=== PATIENT | female | born 1955 | race Caucasian/White ===

== ENCOUNTER 2021-07-01 19:46 | Emergency (ER) | payer MEDICARE, MEDICAID ==
[~2021-07-01] VITALS: Ht 167.7 cm; Wt 86.0 kg
[~2021-07-01 19:46] MED LIST: ACHD5005 PO; ASPI-586 PO; GABAPENTIN; INSU100V6 SQ; LISI-729 PO; OMEG500C PO; OMEP20TA7 PO; VALA10007 PO
--- NOTE | 2021-07-01 20:07 | ED Dyspnea ---
General Stated Complaint: SOB/WEAKNESS History of Present Illness Date Seen by Provider: Jul 01, 2021 Time Seen by Provider: 20:07 Initial Comments 66-year-old female with past medical history significant for COPD and a long- term smoker presents with intermittent shortness of air which began today, primarily with walking. Has had similar symptoms before. No recent illness, fever or chills. No cough or chest pain. No shortness of air at rest. Allergies and Home Medications Allergies Coded Allergies: midazolam (Verified Allergy, Unknown, 07/30/16) Home Medications Hydrocodone Bit/Acetaminophen 1 Each Tablet, 1 EACH PO Q4H PRN for PAIN Prescribed by: CARMELO PRASAD on 07/30/16 1300 Lisinopril 5 Mg Tablet, 5 MG PO DAILY, (Reported) Valacyclovir HCl 1,000 Mg Tablet, 1,000 MG PO TID Prescribed by: CARMELO PRASAD on 07/30/16 1300 Patient Home Medication List Home Medication List Reviewed: Yes Review of Systems Review of Systems Constitutional: No fever, No malaise, No weakness EENTM: no symptoms reported Respiratory: see HPI, dyspnea on exertion; No stridor, No wheezing Cardiovascular: No chest pain, No edema, No palpitations, No syncope Gastrointestinal: No abdominal pain, No nausea, No vomiting Musculoskeletal: No back pain, No joint pain, No muscle pain, No muscle stiffness, No neck pain Skin: change in color (redness of left leg- noticed on arrival to ER); No lesions, No rash Past Khfylbp-Jmkeml-Dogobb Hx Patient Social History Tobacco Use?: Yes Past Medical History Section, Gallbladder, Hysterectomy, Lumpectomy Hypertension Neuropathy Chronic Diarrhea Diabetes, Non-Insulin dep Physical Exam Vital Signs Vital Signs - First Documented 07/01/21 20:06 Temp 38.2 Pulse 135 Resp 20 B/P (MAP) 116/49 (71) Pulse Ox 97 O2 Delivery Room Air Capillary Refill : Height, Weight, BMI Height: 5'7" Weight: 239lbs. oz. 108.354774ue; BMI Method:Stated General Appearance: No Apparent Distress, WD/WN HEENT: PERRL/EOMI, Normal ENT Inspection Neck: Non Tender, Supple Respiratory: Chest Non Tender, Lungs Clear, Normal Breath Sounds, No Accessory Muscle Use, No Respiratory Distress Cardiovascular: Regular Rate, Rhythm, No JVD Gastrointestinal: Non Tender, Soft Extremity: Normal Capillary Refill, Non Tender, No Calf Tenderness, No Pedal Edema, Other (slight edema and erythema- left lower leg- anteriorly (c/w celulitis)) Neurologic/Psychiatric: Alert, Oriented x3, No Motor/Sensory Deficits Progress/Results/Core Measures Results/Orders Lab Results Laboratory Tests Test 07/01/21 20:45 07/01/21 22:20 Range/Units White Blood Count 19.2 H 4.3-11.0 10^3/uL Red Blood Count 3.85 L 4.35-5.85 10^6/uL Hemoglobin 12.5 11.5-16.0 G/DL Hematocrit 36 35-52 % Mean Corpuscular Volume 94 80-99 FL Mean Corpuscular Hemoglobin 32 25-34 PG Mean Corpuscular Hemoglobin Concent 35 32-36 G/DL Red Cell Distribution Width 12.7 10.0-14.5 % Platelet Count 217 130-400 10^3/uL Mean Platelet Volume 10.3 7.4-10.4 FL Immature Granulocyte % (Auto) 1 % Neutrophils (%) (Auto) 89 H 42-75 % Lymphocytes (%) (Auto) 6 L 12-44 % Monocytes (%) (Auto) 4 0-12 % Eosinophils (%) (Auto) 0 0-10 % Basophils (%) (Auto) 0 0-10 % Neutrophils # (Auto) 17.0 H 1.8-7.8 X 10^3 Lymphocytes # (Auto) 1.1 1.0-4.0 X 10^3 Monocytes # (Auto) 0.9 0.0-1.0 X 10^3 Eosinophils # (Auto) 0.0 0.0-0.3 10^3/uL Basophils # (Auto) 0.1 0.0-0.1 10^3/uL Immature Granulocyte # (Auto) 0.2 H 0.0-0.1 10^3/uL Neutrophils % (Manual) 89 % Lymphocytes % (Manual) 4 % Monocytes % (Manual) 5 % Band Neutrophils 2 % D-Dimer 0.81 H 0.00-0.49 UG/ML Sodium Level 133 L 135-145 MMOL/L Potassium Level 3.7 3.6-5.0 MMOL/L Chloride Level 97 L 98-107 MMOL/L Carbon Dioxide Level 22 21-32 MMOL/L Anion Gap 14 5-14 MMOL/L Blood Urea Nitrogen 19 H 7-18 MG/DL Creatinine 0.95 0.60-1.30 MG/DL Estimat Glomerular Filtration Rate 59 BUN/Creatinine Ratio 20 Glucose Level 141 H 70-105 MG/DL Calcium Level 9.0 8.5-10.1 MG/DL Corrected Calcium 9.1 8.5-10.1 MG/DL Total Bilirubin 0.8 0.1-1.0 MG/DL Aspartate Amino Transf (AST/SGOT) 18 5-34 U/L Alanine Aminotransferase (ALT/SGPT) 10 0-55 U/L Alkaline Phosphatase 62 40-136 U/L Troponin I < 0.30 <0.30 NG/ML Pro-B-Type Natriuretic Peptide 4580.0 H <75.0 PG/ML Total Protein 7.4 6.4-8.2 GM/DL Albumin 3.9 3.2-4.5 GM/DL Urine Color YELLOW Urine Clarity CLEAR Urine pH 5.5 5-9 Urine Specific [place] 1.010 L 1.016-1.022 Urine Protein NEGATIVE NEGATIVE Urine Glucose (UA) NEGATIVE NEGATIVE Urine Ketones 1+ H NEGATIVE Urine Nitrite NEGATIVE NEGATIVE Urine Bilirubin NEGATIVE NEGATIVE Urine Urobilinogen 0.2 < = 1.0 MG/DL Urine Leukocyte Esterase NEGATIVE NEGATIVE Urine RBC (Auto) 1+ H NEGATIVE Urine RBC NONE /HPF Urine WBC 5-10 H /HPF Urine Squamous Epithelial Cells 5-10 /HPF Urine Crystals NONE /LPF Urine Bacteria MODERATE H /HPF Urine Casts NONE /LPF Urine Mucus NEGATIVE /LPF Urine Culture Indicated YES My Orders Orders - HECTOR TRUONG DO Chest 1 View Ap/Pa Only (07/01/21 20:25) Ekg Tracing (07/01/21 20:25) Ed Iv/Invasive Line Start (07/01/21 20:31) Cbc With Automated Diff (07/01/21 20:31) Comprehensive Metabolic Panel (07/01/21 20:31) Troponin I Fs (07/01/21 20:31) Probnp Fs (07/01/21 20:31) Fibrin Degradation Products (07/01/21 20:31) Ns Iv 1000 Ml (Sodium Chloride 0.9%) (07/01/21 21:00) Manual Differential (07/01/21 20:45) Cefepime Injection (Maxipime Injection) (07/01/21 21:15) Iohexol Injection (Omnipaque 350 Mg/Ml 1 (07/01/21 21:30) Received Contrast (Hold Metformin- Contr (07/01/21 21:30) Ns (Ivpb) (Sodium Chloride 0.9% Ivpb Bag (07/01/21 21:30) Ct Angio Chest W (07/01/21 21:18) Ns Iv 500 Ml (Sodium Chloride 0.9%) (07/01/21 21:45) Urinalysis (07/01/21 22:25) Urine Culture (07/01/21 22:20) Medications Given in ED Current Medications Medications Dose Ordered Sig/Sara Route Start Time Stop Time Status Last Admin Dose Admin Cefepime HCl 1000 mg/Sterile Water 10 ml @ 200 mls/hr ONCE ONCE IV 07/01/21 21:15 07/01/21 21:17 DC 07/01/21 21:23 200 MLS/HR Iohexol 125 ml ONCE ONCE IV 07/01/21 21:30 07/01/21 21:31 DC 07/01/21 21:36 125 ML Sodium Chloride 100 ml ONCE ONCE IV 07/01/21 21:30 07/01/21 21:31 DC 07/01/21 21:36 100 ML Vital Signs/I&O 07/01/21 07/01/21 07/01/21 07/01/21 20:06 20:15 20:30 20:45 Temp 38.2 Pulse 135 132 120 124 Resp 20 B/P (MAP) 116/49 (71) 112/67 (82) 116/88 (97) 110/68 (82) Pulse Ox 97 97 96 99 O2 Delivery Room Air 07/01/21 07/01/21 07/01/21 07/01/21 21:00 21:15 21:30 22:30 Pulse 114 111 117 116 B/P (MAP) 123/63 (83) 130/66 (87) 116/63 (80) 128/74 (92) Pulse Ox 95 96 96 98 07/01/21 07/01/21 23:30 23:30 Temp 37.2 Pulse 97 97 Resp 20 B/P (MAP) 130/70 130/70 (90) Pulse Ox 94 94 O2 Delivery Room Air 07/02/21 00:00 Intake Total 1010 ml Balance 1010 ml Initial ECG Impression Date: Jul 01, 2021 Initial ECG Impression Time: 20:29 Initial ECG Rate: 135 Initial ECG Rhythm: S.Tach Initial ECG Intervals: Normal Initial ECG Comparisson: No Previous ECG Available Comment non-specific ST changes V3 V4 Diagnostic Imaging Diagonstic Imaging: Xray Plain Films/CT/US/NM/MRI: chest Comments Date of Exam:07/01/21 CHEST 1 VIEW AP/PA ONLY INDICATION: Dyspnea. EXAMINATION: Frontal chest was obtained at 8:18 p.m. FINDINGS: Heart is normal in size. Mediastinal silhouette is unremarkable. There are chronic appearing increased interstitial markings. There is no acute consolidation, pneumothorax or pleural fluid. There is hyperinflation. IMPRESSION: COPD changes with chronic appearing increased interstitial markings. No acute consolidation or pleural fluid. Dictated on workstation # [id number] Dict: 07/01/212039 Trans: 07/01/212045 [facility] [id number] Interpreted by: NHAN GUZMAN MD Electronically signed by: Departure Communication (Admissions) Time/Spoke to Admitting Phy: 22:[address] Richardson who accepts for admission/ transfer to [facility] Impression Primary Impression: Dyspnea on exertion Additional Impression: Cellulitis Qualified Codes: L03.116 - Cellulitis of left lower limb Disposition: XFER SHT-TRM HOSP Condition: Stable Admissions Decision to Admit Reason: Admit from ER (General) Decision to Admit/Date: Jul 01, 2021 Time/Decision to Admit Time: 22:00 Transfer Transfer Reason: Diversion (no beds [facility]) Time Spoke to Accepting Phy: 22:37 Transfer Facility: [facility] Method of Transfer: EMS Departure-Patient Inst. Referrals: [facility] (PCP/Family) Primary Care Physician HECTOR TRUONG DO Jul 01, 2021 20:07
--- NOTE | 2021-07-01 20:47 | Diagnostic Imaging Report ---
INDICATION: Dyspnea. EXAMINATION: Frontal chest was obtained at 8:18 p.m. FINDINGS: Heart is normal in size. Mediastinal silhouette is unremarkable. There are chronic appearing increased interstitial markings. There is no acute consolidation, pneumothorax or pleural fluid. There is hyperinflation. IMPRESSION: COPD changes with chronic appearing increased interstitial markings. No acute consolidation or pleural fluid. Dictated by: Dictated on workstation # [id number]
[2021-07-01 20:53] LABS: BASOPHILS # (AUTO) 0.1 10^3/uL (0.0-0.1); BASOPHILS % (AUTO) 0 % (0-10); EOSINOPHILS % (AUTO) 0 % (0-10); HEMATOCRIT 36 % (35-52); HEMOGLOBIN 12.5 G/DL (11.5-16.0); LYMPHOCYTES # (AUTO) 1.1 X 10^3 (1.0-4.0); LYMPHOCYTES % (AUTO) 6 % (12-44); MEAN CORPUSCULAR HEMOGLOBIN 32 PG (25-34); MEAN CORPUSCULAR HGB CONC 35 G/DL (32-36); MEAN CORPUSCULAR VOLUME 94 FL (80-99); MEAN PLATELET VOLUME 10.3 FL (7.4-10.4); MONOCYTES # (AUTO) 0.9 X 10^3 (0.0-1.0); MONOCYTES % (AUTO) 4 % (0-12); NEUTROPHILS % (AUTO) 89 % (42-75); PLATELET COUNT 217 10^3/uL (130-400); WHITE BLOOD COUNT 19.2 10^3/uL (4.3-11.0)
[2021-07-01] MEDS ORDERED: NS IV 1000 ML 1,000 ML IV SCH (21:00)
[2021-07-01 21:13] LABS: ALANINE AMINOTRANSFERASE 10 U/L (0-55); ALBUMIN 3.9 GM/DL (3.2-4.5); ALKALINE PHOSPHATASE 62 U/L (40-136); BILIRUBIN,TOTAL 0.8 MG/DL (0.1-1.0); BUN/CREATININE RATIO 20; CARBON DIOXIDE 22 MMOL/L (21-32); CHLORIDE 97 MMOL/L (98-107); CREATININE SERUM 0.95 MG/DL (0.60-1.30); GFR ESTIMATED 59; GLUCOSE 141 MG/DL (70-105); POTASSIUM 3.7 MMOL/L (3.6-5.0); SODIUM 133 MMOL/L (135-145); TOTAL PROTEIN 7.4 GM/DL (6.4-8.2)
[2021-07-01] MEDS ORDERED: CEFEPIME INJECTION 1,000 MG in WATER (STERILE) FOR INJECTION 10 ML IV ONE (21:15)
[2021-07-01] MEDS ORDERED: NS 100 ML (IVPB) BAG IV ONE (21:30)
[2021-07-01] MEDS ORDERED: IOHEXOL 350 MG/ML 150 ML (OMNIPAQUE 350) VIAL IV ONE (21:30)
[2021-07-01] MEDS ORDERED: HOLD METFORMIN - RECEIVED CONTRAST 20 ML VIAL IV SCH (21:30)
[2021-07-01] MEDS ORDERED: NS IV 500 ML 500 ML IV SCH (21:45)
--- NOTE | 2021-07-01 22:22 | Diagnostic Imaging Report ---
PROCEDURE: CT angiography of the chest with contrast. TECHNIQUE: Multiple contiguous axial images were obtained through the chest after uneventful bolus administration of intravenous contrast. 3D reconstructed CTA MIP acquisitions were also performed. Auto Exposure Controls were utilized during the CT exam to meet ALARA standards for radiation dose reduction. INDICATION: Shortness of breath. COMPARISON: There is no prior CTA chest examination available for comparison. The plain film examination of the chest performed earlier today at 8:17 PM noted chronic bony changes but failed to show any sign of an acute cardiopulmonary abnormality. The heart size is within normal limits. There are sparse coronary artery calcifications evident. The aorta is not abnormally dilated and there is no sign of a dissection. There is no defect within the pulmonary arteries to indicate a pulmonary embolus either. There are mild emphysematous changes involving both lungs. There is no evidence of failure, pneumonia or a pleural effusion to indicate an acute abnormality. In the right lung base near the diaphragm there is a fairly well-circumscribed noncalcified 6.9 x 14.7 mm nodule. This finding does not have an aggressive appearance and may well be benign. The possibility that this is a malignant lesion cannot be entirely excluded. If previous studies are available they would be helpful for comparison. If there are no prior exams, then PET/CT would be recommended for further study. If the PET/CT exam is not performed, then a short-term (three-month) CT chest exam would be recommended. There is no other parenchymal lung mass identified. There is no mediastinal or hilar adenopathy. Thyroid gland was obscured by streak artifact. There is no definite breast mass. The sections through the upper abdomen failed to show any sign of an acute abnormality. There do appear to be cysts associated with both kidneys. Ultrasound would be recommended to confirm this. Also, there is a 5.2 cm defect in the anterior abdominal wall near midline and a portion of the left lobe of the liver has extended through this defect into the subcutaneous fat. The gallbladder is also surgically absent. The bone windows show no sign of a fracture or of a destructive lesion. IMPRESSION: 1. There is no evidence for an acute cardiopulmonary abnormality. In particular, there is no sign of a pulmonary embolus or of an aortic dissection. 2. The parenchymal nodule in the right lung base is of uncertain etiology although most likely benign. Recommendations as above. 3. There appear to be cysts associated with both kidneys. Ultrasound would be recommended to confirm this. 4. There is a defect in the anterior abdominal wall with a portion of the left lobe of the liver extending through the defect. Dictated by: Dictated on workstation # [id number]
[2021-07-01 22:33] LABS: BACTERIA,URINE MODERATE /HPF; BILIRUBIN,URINE NEGATIVE (NEGATIVE); CLARITY,URINE CLEAR; COLOR,URINE YELLOW; GLUCOSE, URINE (UA) NEGATIVE (NEGATIVE); KETONES,URINE 1+ (NEGATIVE); LEUKOCYTE ESTERASE ,URINE NEGATIVE (NEGATIVE); NITRITE,URINE NEGATIVE (NEGATIVE); PH,URINE 5.5 (5-9); PROTEIN,URINE NEGATIVE (NEGATIVE)
[2021-07-01 22:49] LABS: BAND NEUTROPHILS 2 %; LYMPHOCYTES % (MANUAL) 4 %; MONOCYTES % (MANUAL) 5 %; NEUTROPHILS % (MANUAL) 89 %
[2021-07-01 23:30] VITALS: BP 130/70
== END 2021-07-01 23:30 | disposition short-term general hospital (02) ==
LOC: EDUNIT# 19:46 → ER FS 19:50
DX: R06.09 Other forms of dyspnea (principal); L03.116 Cellulitis of left lower limb; I10 Essential (primary) hypertension; E11.9 Type 2 diabetes mellitus without complications; Z79.899 Other long term (current) drug therapy
CPT/HCPCS: 36415; 71045; 71275; 80053; 81000; 83880; 84484; 85007; 85027; 85379; 87088; 93005; 96374

== ENCOUNTER 2021-08-13 18:20 | Emergency (ER) | payer MEDICARE, MEDICAID ==
[~2021-08-13] VITALS: Ht 170.2 cm; Wt 112.5 kg
[2021-08-13 18:33] VITALS: BP 117/81
[2021-08-13] MEDS ORDERED: IBUPROFEN 800 MG (MOTRIN) TAB PO STA (18:46)
--- NOTE | 2021-08-13 18:52 | ED Fever ---
History of Present Illness General Chief Complaint: Fever-Adult/Adol Stated Complaint: FEVER/COUGH Nursing Triage Note: Patient reports she began running a fever of 99 degrees and having chills this morning. She denies any new shortness of breath, cough, N/V/D, headache, body aches, sore throat, etc. She states she took tylenol 4 hours ago. Source: patient History of Present Illness Date Seen by Provider: Aug 13, 2021 Time Seen by Provider: 18:21 Initial Comments 66-year-old female presenting with complaints of fever 99 F and having chills since this morning. She had taken Tylenol few hours ago and it was helping but then she started having chills again. She denies any new shortness of breath, cough, increased sputum production, nausea, vomiting, diarrhea, headache, nasal congestion, body aches, sore throat, pain with urination, blood in her urine, blood in her stool. She denies having any chest pains. She has not been having any sinus congestion or pressure for a sinus infection. She states that she does not feel any different than normal other than she has the low-grade fever and chills. She wanted to know what to do to treat the fever and chills. She denies any ill contacts. She refused swab for Covid or influenza Timing/Duration: this morning Fever Quality: low grade Fever Therapy COACH WIRER: Tylenol Associated Symptoms: No abdominal pain, No chest pain, No confusion; cough (Chronic and no worse than usual); No diaphoresis, No headache, No muscle aches, No nausea/vomiting, No rash; shortness of breath (Chronic and no worse than usual); No sore throat, No stiff neck, No syncope, No weakness Allergies and Home Medications Allergies Coded Allergies: midazolam (Verified Allergy, Unknown, 07/30/16) Patient Home Medication List Home Medication List Reviewed: Yes Aspirin (Aspir 81) 81 Mg Tablet.dr, 81 MG PO, (Reported) Entered as Reported by: JIMMY LUCIANO on 07/30/16 1104 Hydrocodone Bit/Acetaminophen (Lortab 5 Mg Tablet) 1 Each Tablet, 1 EACH PO Q4H PRN for PAIN Prescribed by: CARMELO PRASAD on 07/30/16 1300 Insulin Glargine,Hum.rec.anlog (Lantus) 100 Unit/1 Ml Vial, 35 UNIT SQ, (Reported) Entered as Reported by: JIMMY LUCIANO on 07/30/161103 Lisinopril (Lisinopril) 5 Mg Tablet, 5 MG PO DAILY, (Reported) Entered as Reported by: JIMMY LUCIANO on 07/30/161103 [place]-3 Fatty Acids (Fish Oil) 500 Mg Capsule.dr, 500 MG PO, (Reported) Entered as Reported by: JIMMY LUCIANO on 07/30/16 110 Omeprazole (Omeprazole) 20 Mg Tablet.dr, 20 MG PO, (Reported) Entered as Reported by: JIMMY LUCIANO on 07/30/16 110 Valacyclovir HCl (Valacyclovir) 1,000 Mg Tablet, 1,000 MG PO TID Prescribed by: CARMELO PRASAD on 07/30/16 1300 [Gabapentin] , (Reported) Entered as Reported by: JIMMY LUCIANO on 07/30/16 110 Review of Systems Review of Systems Constitutional: chills, fever EENTM: No ear discharge, No ear pain, No blurred vision, No eye pain, No dental problems, No mouth pain, No epistaxis, No nose congestion, No throat pain, No throat swelling Respiratory: see HPI Cardiovascular: No chest pain, No palpitations Gastrointestinal: No abdominal pain, No diarrhea, No nausea, No vomiting Genitourinary: No decreased output, No dysuria, No frequency Musculoskeletal: No joint pain, No muscle pain, No muscle cramps Skin: No rash Psychiatric/Neurological: Denies Headache Past Jllspdv-Mojvhy-Yoqgfs Hx Patient Social History Tobacco Use?: Yes Tobacco type used: Cigarettes Smoking Status: Current Everyday Smoker Substance use?: No Alcohol Use?: No Pt feels they are or have been: No Past Medical History Surgery/Hospitalization HX: COPD, DM, HTN Section, Gallbladder, Hysterectomy, Lumpectomy Hypertension Neuropathy Chronic Diarrhea Diabetes, Non-Insulin dep Physical Exam Vital Signs - First Documented 08/13/21 18:33 Temp 37.6 Pulse 96 Resp 26 B/P (MAP) 117/81 (93) Pulse Ox 99 O2 Delivery Room Air Capillary Refill : Less Than 3 Seconds Height: 5'7" Weight: 239lbs. oz. 108.963773qg; 38.00 BMI Method:Stated General Appearance: no apparent distress, obese HEENT: pharynx normal Neck: non-tender, full range of motion, supple, normal inspection Respiratory: chest non-tender, no respiratory distress, no accessory muscle use, decreased breath sounds Cardiovascular: normal peripheral pulses, regular rate, rhythm Gastrointestinal: normal bowel sounds, non tender, soft, no pulsatile mass Extremities: normal range of motion, non-tender Neurologic/Psychiatric: alert, oriented x 3 Skin: normal color, warm/dry Progress/Results/Core Measures Suspected Sepsis SIRS Temperature: Pulse: 96 Respiratory Rate: 26 Blood Pressure 117 /81 Mean: 93 Results/Orders My Orders Orders - CARMELLA WONG MD Ibuprofen Tablet (Motrin Tablet) (08/13/21 18:46) Vital Signs/I&O 08/13/21 18:33 Temp 37.6 Pulse 96 Resp 26 B/P (MAP) 117/81 (93) Pulse Ox 99 O2 Delivery Room Air Capillary Refill : Less Than 3 Seconds Blood Pressure Mean: 93 Progress Note : Progress Note Advised patient that without doing a chest x-ray, labs, nasal swab or additional testing that he could not give her a reason for her fever. On exam did not find any focal sign of infection. Her symptoms or just the fever and chills and do not help pinpoint a specific location for her symptoms. Patient refused any blood work or x-rays or nasal swabs. She stated repeatedly she just wanted to know how to deal with the fever. Advised that this may be related to her COPD if there is a little low-grade infection from her chronic bronchitis so taking Mucinex to help loosen any congestion cough might help. If she wanted I could prescribe a Zithromax Z-Paul to try and help with her symptoms in case it was COPD related. Patient declined that for now as well. Counseled to take ibuprofen in addition to acetaminophen to help with her fever and chills. Patient states she has no ibuprofen at home so we will give a dose of ibuprofen here. Advised that she had worsening symptoms or things change to be seen again or check back through the clinic. Otherwise for now continue with symptomatic care and treatment Departure Impression Primary Impression: Fever in adult Additional Impression: Chills with fever Disposition: HOME, SELF-CARE Condition: Stable Departure-Patient Inst. Decision time for Depature: 18:49 Referrals: [facility] [place] Primary Care Physician Patient Instructions: Fever, Adult ED, When to Worry About a Fever in Adults Add. Discharge Instructions: Try taking Ibuprofen 800 mg every 8 hours if needed for fever and chills. You may alternate this with Acetaminophen 650 mg every 6 hours for fever and chills. In case the fever is from your COPD and the Chronic Bronchitis trying to set up into infection you could take Mucinex to help loosen cough and congestion. Check back with clinic if not improving or having worsening symptoms If you have more problems or are not improving then you may need additional testing such as the Chest Xray, blood work and Swabs to check for viral infections that you declined today. All discharge instructions reviewed with patient and/or family. Voiced understanding. CARMELLA WONG MD Aug 13, 2021 18:52
== END 2021-08-13 18:57 | disposition home or self-care (01) ==
LOC: EDUNIT# 18:20 → ER FS 18:22
DX: R50.9 Fever, unspecified (principal); I10 Essential (primary) hypertension; E11.40 Type 2 diabetes mellitus with diabetic neuropathy, unspecified; J44.9 Chronic obstructive pulmonary disease, unspecified; E66.9 Obesity, unspecified; F17.210 Nicotine dependence, cigarettes, uncomplicated; Z68.38 Body mass index [BMI] 38.0-38.9, adult; Z79.4 Long term (current) use of insulin; Z79.899 Other long term (current) drug therapy
CPT/HCPCS: 99283

== ENCOUNTER 2021-08-14 23:00 | Emergency (ER) | payer MEDICARE, MEDICAID ==
[~2021-08-14] VITALS: Ht 170 cm; Wt 108.4 kg
--- NOTE | 2021-08-14 23:13 | ED General ---
General Stated Complaint: FEVER Source of Information: Patient, EMS History of Present Illness Date Seen by Provider: Aug 14, 2021 Time Seen by Provider: 23:07 Initial Comments 66-year-old female presents with body aches and chills, low-grade fever which began yesterday. Seen in this ER last night and patient refused most of the work-up and treatments offered. Tonight she comes back via EMS with complaint of swelling and redness of her left leg. States he had similar symptoms in the past and diagnosed with cellulitis of her left leg in the past. Allergies and Home Medications Allergies Coded Allergies: midazolam (Verified Allergy, Unknown, 07/30/16) Patient Home Medication List Home Medication List Reviewed: Yes Aspirin (Aspir 81) 81 Mg Tablet., 81 MG PO, (Reported) Entered as Reported by: JIMMY LUCIANO on 07/30/16 110 Hydrocodone Bit/Acetaminophen (Lortab 5 Mg Tablet) 1 Each Tablet, 1 EACH PO Q4H PRN for PAIN Prescribed by: CARMELO PRASAD on 07/30/16 1300 Insulin Glargine,Hum.rec.anlog (Lantus) 100 Unit/1 Ml Vial, 35 UNIT SQ, (Reported) Entered as Reported by: JIMMY LUCIANO on 07/30/16 110 Lisinopril (Lisinopril) 5 Mg Tablet, 5 MG PO DAILY, (Reported) Entered as Reported by: JIMMY LUCIANO on 07/30/16 110 [place]-3 Fatty Acids (Fish Oil) 500 Mg Capsule., 500 MG PO, (Reported) Entered as Reported by: JIMMY LUCIANO on 07/30/16 110 Omeprazole (Omeprazole) 20 Mg Tablet., 20 MG PO, (Reported) Entered as Reported by: JIMMY LUCIANO on 07/30/16 110 Valacyclovir HCl (Valacyclovir) 1,000 Mg Tablet, 1,000 MG PO TID Prescribed by: CARMELO PRASAD on 07/30/16 1300 [Gabapentin] , (Reported) Entered as Reported by: JIMMY LUCIANO on 07/30/16 110 Review of Systems Review of Systems Constitutional: see HPI, chills, fever, malaise EENTM: no symptoms reported Respiratory: No cough, No short of breath Cardiovascular: No edema, No palpitations Gastrointestinal: No abdominal pain, No loss of appetite, No vomiting Musculoskeletal: see HPI; No back pain, No joint pain Skin: see HPI, change in color (redness Left leg); No pruritus, No rash Psychiatric/Neurological: Denies Numbness, Denies Paresthesia Past Yswfiyo-Vpqhwh-Bpctyx Hx Patient Social History Tobacco Use?: Yes Past Medical History Surgery/Hospitalization HX: COPD, DM, HTN Section, Gallbladder, Hysterectomy, Lumpectomy Hypertension Neuropathy Chronic Diarrhea Diabetes, Non-Insulin dep Physical Exam Vital Signs Capillary Refill : Height, Weight, BMI Height: 5'7" Weight: 239lbs. oz. 108.991584wy; 38.00 BMI Method:Stated General Appearance: No Apparent Distress, WD/WN Respiratory: Chest Non Tender, Lungs Clear, Normal Breath Sounds Cardiovascular: Regular Rate, Rhythm, No Gallop, No JVD Gastrointestinal: Non Tender, Soft Back: Normal Inspection, No CVA Tenderness Extremity: Normal Capillary Refill, Normal Range of Motion, Non Tender Neurologic/Psychiatric: Alert, Oriented x3 Skin: Erythema (Left leg and Left foot); No Rash Focused Exam Lactate Level 08/14/21 23:24: Lactic Acid Level 1.77 Lactic Acid Level Laboratory Tests Test 08/14/21 23:24 Lactic Acid Level 1.77 MMOL/L (0.50-2.00) Progress/Results/Core Measures Suspected Sepsis Recent Fever Within 48 Hours: Yes Infection Criteria Present: Suspected New Infection New/Unexplained Altered Menta: No Within 3hrs of presentation: Admin fluids, Admin ABX, Blood cultures prior to ABX's, Focus exam, Lactate level Sepsis Diagnosis: (1) Cellulitis Qualifiers: Qualified Codes: L03.116 - Cellulitis of left lower limb (2) Fever in adult SIRS Temperature: Pulse: Respiratory Rate: Laboratory Tests 08/14/21 23:10: White Blood Count 14.5H Blood Pressure / Mean: 08/14/21 23:24: Lactic Acid Level 1.77 Laboratory Tests 08/14/21 23:10: Creatinine 1.17, Platelet Count 204, Total Bilirubin 0.5 Results/Orders Lab Results Laboratory Tests Test 08/14/21 23:10 08/14/21 23:24 Range/Units White Blood Count 14.5 H 4.3-11.0 10^3/uL Red Blood Count 3.86 3.80-5.11 10^6/uL Hemoglobin 12.6 11.5-16.0 g/dL Hematocrit 38 35-52 % Mean Corpuscular Volume 97 80-99 fL Mean Corpuscular Hemoglobin 33 25-34 pg Mean Corpuscular Hemoglobin Concent 34 32-36 g/dL Red Cell Distribution Width 13.2 10.0-14.5 % Platelet Count 204 130-400 10^3/uL Mean Platelet Volume 10.9 9.0-12.2 fL Immature Granulocyte % (Auto) 1 % Neutrophils (%) (Auto) 81 H 42-75 % Lymphocytes (%) (Auto) 13 12-44 % Monocytes (%) (Auto) 6 0-12 % Eosinophils (%) (Auto) 0 0-10 % Basophils (%) (Auto) 0 0-10 % Neutrophils # (Auto) 11.7 H 1.8-7.8 X 10^3 Lymphocytes # (Auto) 1.9 1.0-4.0 X 10^3 Monocytes # (Auto) 0.8 0.0-1.0 X 10^3 Eosinophils # (Auto) 0.0 0.0-0.3 10^3/uL Basophils # (Auto) 0.1 0.0-0.1 10^3/uL Immature Granulocyte # (Auto) 0.1 0.0-0.1 10^3/uL Neutrophils % (Manual) 74 % Lymphocytes % (Manual) 11 % Monocytes % (Manual) 1 % Metamyelocytes % 1 % Band Neutrophils 8 % Atypical Lymphocytes 5 % Platelet Estimate ADEQUATE Blood Morphology Comment NORMAL Sodium Level 134 L 135-145 MMOL/L Potassium Level 4.2 3.6-5.0 MMOL/L Chloride Level 97 L 98-107 MMOL/L Carbon Dioxide Level 25 21-32 MMOL/L Anion Gap 12 5-14 MMOL/L Blood Urea Nitrogen 24 H 7-18 MG/DL Creatinine 1.17 0.60-1.30 MG/DL Estimat Glomerular Filtration Rate 46 BUN/Creatinine Ratio 21 Glucose Level 230 H 70-105 MG/DL Calcium Level 8.8 8.5-10.1 MG/DL Corrected Calcium 9.0 8.5-10.1 MG/DL Total Bilirubin 0.5 0.1-1.0 MG/DL Aspartate Amino Transf (AST/SGOT) 17 5-34 U/L Alanine Aminotransferase (ALT/SGPT) 10 0-55 U/L Alkaline Phosphatase 73 40-136 U/L Total Protein 7.6 6.4-8.2 GM/DL Albumin 3.7 3.2-4.5 GM/DL Lactic Acid Level 1.77 0.50-2.00 MMOL/L My Orders Orders - ROVENSTINE,HECTOR L DO Ed Iv/Invasive Line Start (08/14/21 23:07) Cbc With Automated Diff (08/14/21 23:07) Comprehensive Metabolic Panel (08/14/21 23:07) Lactic Acid Analyzer (08/14/21 23:07) Blood Culture (08/14/21 23:07) Ceftriaxone (Rocephin) (08/14/21 23:15) Ceftriaxone (Rocephin) (08/14/21 23:16) Water (Sterile) For Injection (Sterile W (08/14/21 23:18) Manual Differential (08/14/21 23:10) Medications Given in ED Current Medications Medications Dose Ordered Sig/Sara Route Start Time Stop Time Status Last Admin Dose Admin Ceftriaxone Sodium 1000 mg/ Sterile Water 10 ml @ 200 mls/hr ONCE ONCE IV 08/14/21 23:15 08/14/21 23:17 DC 08/14/21 23:21 200 MLS/HR Vital Signs/I&O 08/15/21 00:00 Intake Total 10 ml Balance 10 ml Capillary Refill : Departure Impression Primary Impression: Cellulitis Qualified Codes: L03.116 - Cellulitis of left lower limb Disposition: HOME, SELF-CARE Condition: Stable Departure-Patient Inst. Decision time for Depature: 00:12 Referrals: [facility] (PCP/Family) Primary Care Physician Patient Instructions: Cellulitis (Skin Infection), Adult ED Add. Discharge Instructions: Follow up with your PCP in 2 days for re-examination. Continue the antibiotics as instructed. Elevate your leg (legs) 4 times daily for 20-30 minutes to prevent swelling Scripts Ibuprofen (Ibuprofen) 800 Mg Tablet 800 MG PO Q8H PRN for PAIN, #30 TAB 0 Refills Prov: ROVENSTINE,HECTOR L DO 08/15/21 Cephalexin (Cephalexin) 500 Mg Tablet 500 MG PO QID, #28 TAB 0 Refills Prov: ROVENSTINE,HECTOR L DO 08/15/21 HECTOR TRUONG DO Aug 14, 2021 23:13
[2021-08-14] MEDS ORDERED: cefTRIAXone 1,000 MG in WATER (STERILE) FOR INJECTION 10 ML IV ONE (23:15)
[2021-08-14] MEDS ORDERED: cefTRIAXone 1,000 MG VIAL ONE (23:16)
[2021-08-14] MEDS ORDERED: WATER (STERILE) FOR INJECTION 10 ML ONE (23:18)
[2021-08-14 23:41] LABS: BASOPHILS % (AUTO) 0 % (0-10); EOSINOPHILS % (AUTO) 0 % (0-10); HEMATOCRIT 38 % (35-52); HEMOGLOBIN 12.6 g/dL (11.5-16.0); LYMPHOCYTES # (AUTO) 1.9 X 10^3 (1.0-4.0); LYMPHOCYTES % (AUTO) 13 % (12-44); MEAN CORPUSCULAR HEMOGLOBIN 33 pg (25-34); MEAN CORPUSCULAR HGB CONC 34 g/dL (32-36); MEAN CORPUSCULAR VOLUME 97 fL (80-99); MEAN PLATELET VOLUME 10.9 fL (9.0-12.2); MONOCYTES % (AUTO) 6 % (0-12); NEUTROPHILS # (AUTO) 11.7 X 10^3 (1.8-7.8); NEUTROPHILS % (AUTO) 81 % (42-75); PLATELET COUNT 204 10^3/uL (130-400); WHITE BLOOD COUNT 14.5 10^3/uL (4.3-11.0)
[2021-08-14 23:42] LABS: BASOPHILS # (AUTO) 0.1 10^3/uL (0.0-0.1); MONOCYTES # (AUTO) 0.8 X 10^3 (0.0-1.0)
[2021-08-14 23:50] LABS: ATYPICAL LYMPHOCYTES 5 %; BAND NEUTROPHILS 8 %; LYMPHOCYTES % (MANUAL) 11 %; METAMYELOCYTES % 1 %; MONOCYTES % (MANUAL) 1 %; NEUTROPHILS % (MANUAL) 74 %
[2021-08-14 23:51] LABS: PLATELET ESTIMATE ADEQUATE; RBC MORPH NORMAL
[2021-08-14 23:56] LABS: POTASSIUM 4.2 MMOL/L (3.6-5.0)
[2021-08-14 23:57] LABS: ALBUMIN 3.7 GM/DL (3.2-4.5); BILIRUBIN,TOTAL 0.5 MG/DL (0.1-1.0); CALCIUM 8.8 MG/DL (8.5-10.1); CREATININE SERUM 1.17 MG/DL (0.60-1.30); TOTAL PROTEIN 7.6 GM/DL (6.4-8.2)
[2021-08-15] MEDS ORDERED: IBUP-1780 PO (00:16)
[2021-08-15] MEDS ORDERED: CEPH500T PO (00:16)
[2021-08-15 01:03] VITALS: BP 146/100
== END 2021-08-15 00:30 | disposition home or self-care (01) ==
LOC: EDUNIT# 23:00 → ER FS 23:01
DX: L03.116 Cellulitis of left lower limb (principal); J44.9 Chronic obstructive pulmonary disease, unspecified; I10 Essential (primary) hypertension; E11.9 Type 2 diabetes mellitus without complications; Z79.82 Long term (current) use of aspirin; Z79.899 Other long term (current) drug therapy
CPT/HCPCS: 36415; 80053; 83605; 85007; 85027; 87040

== ENCOUNTER → 2021-10-30 | Outpatient (CLI) | payer MEDICARE, MEDICAID ==
[~2021-10-30] MED LIST changes: +CEPH500T PO; +IBUP-1780 PO; -LISI-729 PO; +LISI5TAB20 PO
== END ==
LOC: WOUNDCARE 12:23
PROVIDERS: ATTEND Family Medicine
DX: E11.621 Type 2 diabetes mellitus with foot ulcer (principal); L97.522 Non-pressure chronic ulcer of other part of left foot with fat layer exposed; E11.65 Type 2 diabetes mellitus with hyperglycemia; E11.40 Type 2 diabetes mellitus with diabetic neuropathy, unspecified; L03.116 Cellulitis of left lower limb; T65.222A Toxic effect of tobacco cigarettes, intentional self-harm, initial encounter; I70.245 Atherosclerosis of native arteries of left leg with ulceration of other part of foot; E11.52 Type 2 diabetes mellitus with diabetic peripheral angiopathy with gangrene
CPT/HCPCS: 99212

== ENCOUNTER → 2021-11-06 | Outpatient (CLI) | payer MEDICARE, MEDICAID | LOC: WOUNDCARE 12:24 | PROVIDERS: ATTEND Family Medicine | DX: E11.621 Type 2 diabetes mellitus with foot ulcer (principal); L97.522 Non-pressure chronic ulcer of other part of left foot with fat layer exposed; E11.65 Type 2 diabetes mellitus with hyperglycemia; E11.40 Type 2 diabetes mellitus with diabetic neuropathy, unspecified; E11.52 Type 2 diabetes mellitus with diabetic peripheral angiopathy with gangrene; L03.116 Cellulitis of left lower limb; T65.222A Toxic effect of tobacco cigarettes, intentional self-harm, initial encounter; I70.245 Atherosclerosis of native arteries of left leg with ulceration of other part of foot | CPT/HCPCS: 99212 ==

== ENCOUNTER → 2021-11-09 | Outpatient (CLI) | payer MEDICARE, MEDICAID | LOC: CARD 11:00 | PROVIDERS: ATTEND Internal Medicine Cardiovascular Disease | DX: I34.0 Nonrheumatic mitral (valve) insufficiency (principal); I11.9 Hypertensive heart disease without heart failure; I25.10 Atherosclerotic heart disease of native coronary artery without angina pectoris | CPT/HCPCS: 93306 ==

== ENCOUNTER → 2021-11-13 | Outpatient (CLI) | payer MEDICARE, MEDICAID | LOC: WOUNDCARE 12:19 | PROVIDERS: ATTEND Family Medicine | DX: E11.621 Type 2 diabetes mellitus with foot ulcer (principal); L97.522 Non-pressure chronic ulcer of other part of left foot with fat layer exposed; E11.65 Type 2 diabetes mellitus with hyperglycemia; E11.40 Type 2 diabetes mellitus with diabetic neuropathy, unspecified; L03.116 Cellulitis of left lower limb; T65.222A Toxic effect of tobacco cigarettes, intentional self-harm, initial encounter; I70.245 Atherosclerosis of native arteries of left leg with ulceration of other part of foot; E11.52 Type 2 diabetes mellitus with diabetic peripheral angiopathy with gangrene | CPT/HCPCS: 99212 ==

== ENCOUNTER → 2021-11-20 | Outpatient (CLI) | payer MEDICARE, MEDICAID | LOC: WOUNDCARE 12:21 | PROVIDERS: ATTEND Family Medicine | DX: E11.621 Type 2 diabetes mellitus with foot ulcer (principal); L97.522 Non-pressure chronic ulcer of other part of left foot with fat layer exposed; E11.52 Type 2 diabetes mellitus with diabetic peripheral angiopathy with gangrene; E11.65 Type 2 diabetes mellitus with hyperglycemia; E11.40 Type 2 diabetes mellitus with diabetic neuropathy, unspecified; L03.116 Cellulitis of left lower limb; T65.222A Toxic effect of tobacco cigarettes, intentional self-harm, initial encounter; I70.245 Atherosclerosis of native arteries of left leg with ulceration of other part of foot | CPT/HCPCS: 99212 ==

== ENCOUNTER → 2021-11-27 | Outpatient (CLI) | payer MEDICARE, MEDICAID | LOC: WOUNDCARE 12:20 | PROVIDERS: ATTEND Family Medicine | DX: E11.621 Type 2 diabetes mellitus with foot ulcer (principal); L97.522 Non-pressure chronic ulcer of other part of left foot with fat layer exposed; E11.65 Type 2 diabetes mellitus with hyperglycemia; E11.40 Type 2 diabetes mellitus with diabetic neuropathy, unspecified; T65.222A Toxic effect of tobacco cigarettes, intentional self-harm, initial encounter; I70.245 Atherosclerosis of native arteries of left leg with ulceration of other part of foot; E11.52 Type 2 diabetes mellitus with diabetic peripheral angiopathy with gangrene | CPT/HCPCS: 99212 ==

== ENCOUNTER → 2021-11-27 | Outpatient (CLI) | payer MEDICARE, MEDICAID ==
[2021-11-27 13:31] LABS: BASOPHILS # (AUTO) 0.1 10^3/uL (0.0-0.1); BASOPHILS % (AUTO) 1 % (0-10); EOSINOPHILS # (AUTO) 0.1 10^3/uL (0.0-0.3); EOSINOPHILS % (AUTO) 1 % (0-10); HEMATOCRIT 39 % (35-52); HEMOGLOBIN 12.8 g/dL (11.5-16.0); LYMPHOCYTES # (AUTO) 2.9 10^3/uL (1.0-4.0); LYMPHOCYTES % (AUTO) 28 % (12-44); MEAN CORPUSCULAR HEMOGLOBIN 33 pg (25-34); MEAN CORPUSCULAR HGB CONC 33 g/dL (32-36); MEAN CORPUSCULAR VOLUME 99 fL (80-99); MEAN PLATELET VOLUME 10.2 fL (9.0-12.2); MONOCYTES # (AUTO) 0.6 10^3/uL (0.0-1.0); MONOCYTES % (AUTO) 5 % (0-12); NEUTROPHILS # (AUTO) 6.8 10^3/uL (1.8-7.8); NEUTROPHILS % (AUTO) 65 % (42-75); PLATELET COUNT 229 10^3/uL (130-400); WHITE BLOOD COUNT 10.3 10^3/uL (4.3-11.0)
[2021-11-27 14:08] LABS: ALBUMIN 4.2 GM/DL (3.2-4.5); BILIRUBIN,TOTAL 0.7 MG/DL (0.1-1.0); CALCIUM 9.6 MG/DL (8.5-10.1); CREATININE SERUM 0.84 MG/DL (0.60-1.30); POTASSIUM 4.2 MMOL/L (3.6-5.0); TOTAL PROTEIN 6.9 GM/DL (6.4-8.2)
== END ==
LOC: LAB 12:58
PROVIDERS: ATTEND Family Medicine
DX: E11.621 Type 2 diabetes mellitus with foot ulcer (principal); L97.522 Non-pressure chronic ulcer of other part of left foot with fat layer exposed; E11.65 Type 2 diabetes mellitus with hyperglycemia; E11.40 Type 2 diabetes mellitus with diabetic neuropathy, unspecified; L03.116 Cellulitis of left lower limb; T65.222A Toxic effect of tobacco cigarettes, intentional self-harm, initial encounter; I70.245 Atherosclerosis of native arteries of left leg with ulceration of other part of foot
CPT/HCPCS: 36415; 80053; 83036; 85025

== ENCOUNTER 2021-12-01 09:00 | Day surgery (SDC) | payer MEDICARE, MEDICAID ==
[~2021-12-01] VITALS: Ht 165.1 cm; Wt 116.0 kg
[2021-12-01] VITALS (11 sets, daily range): BP systolic 118–186; BP diastolic 62–99
--- NOTE | 2021-12-01 07:30 | Diagnostic Imaging Report ---
INDICATION: Abnormal ankle-brachial index, vascular disease, diabetes. COMPARISON: 07/01/2021 TECHNIQUE: Single frontal radiograph of the chest dated 09/20 2022 FINDINGS: The cardiac silhouette is within normal limits in size. No significant pulmonary vascular congestion. Mild background emphysematous changes and chronic interstitial lung changes are again identified. This appears similar to the prior examination without new focal pulmonary consolidation. No pleural effusion. No pneumothorax. No acute osseous abnormality. IMPRESSION: Background chronic interstitial lung changes and emphysema without superimposed acute cardiopulmonary abnormality. Dictated by: Dictated on workstation # [id number]
[2021-12-01 08:01] LABS: HEMATOCRIT 40 % (35-52); HEMOGLOBIN 13.2 g/dL (11.5-16.0); MEAN CORPUSCULAR HEMOGLOBIN 32 pg (25-34); MEAN CORPUSCULAR HGB CONC 33 g/dL (32-36); MEAN CORPUSCULAR VOLUME 98 fL (80-99); MEAN PLATELET VOLUME 10.8 fL (9.0-12.2); PLATELET COUNT 241 10^3/uL (130-400); WHITE BLOOD COUNT 10.7 10^3/uL (4.3-11.0)
[2021-12-01 08:15] LABS: ALBUMIN 3.9 GM/DL (3.2-4.5); BILIRUBIN,TOTAL 0.7 MG/DL (0.1-1.0); CALCIUM 9.4 MG/DL (8.5-10.1); CREATININE SERUM 0.9 MG/DL (0.60-1.30); POTASSIUM 3.9 MMOL/L (3.6-5.0); TOTAL PROTEIN 7.5 GM/DL (6.4-8.2)
[2021-12-01 08:23] LABS: INR 0.9 (0.8-1.4)
[~2021-12-01 09:00] MED LIST changes: +HEParin (CATH LAB) 2,000 ML IV ONE; +LEVO5TAB12 PO; +LIDOCAINE 1% INJ 20 ML VIAL ONE; +LISI1TAB44 PO; +LOVA40TA2 PO; +NS IV 1000 ML 1,000 ML IV SCH; +NS IV 1000 ML 1,000 ML ONE; +OMEP40CA6 PO; +fentaNYL INJ 100 MCG/2 ML AMP ONE
[2021-12-01] MEDS ORDERED: HEParin 1000 UNIT/ML (10ML VIAL) FOR BOLUS ONE (09:23)
[2021-12-01] MEDS ORDERED: ASPIRIN 325 MG (5 GR) TABLET ONE (09:49)
[2021-12-01] MEDS ORDERED: CLOPIDOGREL 300 MG (PLAVIX) TABLET PO ONE (09:49)
--- NOTE | 2021-12-01 09:52 | Conscious Sedation/ASA ---
Conscious Sedation Pre-Proced Time 09:52 ASA Score 3 For ASA 3 and 4: Consider anesthesia and medical clearance. Also, for patients with a history of failed moderate sedation consider anesthesia. Airway Lungs Heart ASA score ASA 1: a normal healthy patient ASA 2: a patient with a mild systemic disease (mid diabetes, controlled hypertension, obesity x ASA 3: a patient with a severe systemic disease that limits activity (angina, COPD, prior Myocardial infarction) ASA 4: a patient with an incapacitating disease that is a constant threat to life (CHF, renal failure) ASA 5: a moribund patient not expected to survive 24 hrs. (ruptured aneurysm) ASA 6: a declared brain- patient whose organs are being harvested. For emergent operations, add the letter E after the classification Mallampati Classification Grade 3 Sedation Plan Analgesia, Amnesia, Plan communicated to team members, Discussed options with patient/fam, Discussed risks with patient/fam The patient is an appropriate candidate to undergo the planned procedure, sedation, and anesthesia. The patient immediately re-assessed prior to indication. DOMINIC WOODS MD Dec 01, 2021 09:52
[2021-12-01] MEDS ORDERED: CLOP75TA69 PO (09:54)
--- NOTE | 2021-12-01 09:54 | Discharge Inst-Post CATH ---
Discharge Inst-CATH/EP Problems Reviewed?: Yes Post Cardiac Cath/EP D/C Inst Follow Up/Plan Appointment with Dr. Rachel's office in 2 to 4 weeks <b>CARDIAC CATH/EP PROCEDURE DISCHARGE INSTRUCTIONS</b> ACTIVITY * Go Home directly and rest. * Limit activity of the leg (or wrist if it was used) for 7 days including aer obics, swimming, jogging, bicycling, etc. * Restrict stair-climbing for 7 days if possible, if not, climb up with your non-cath leg, then bring together on the same step. * Avoid lifting, pushing, pulling or excessive movement of the affected extremi ty for 7 days. * Customary sexual activity may be resumed after 2 days-use caution not to use a position that strains or causes pain to the affected extremity. * No driving for 24 hours. * NO SMOKING. * Avoid straining for bowel movements for 7 days. * Gentle walking on level ground is allowed. * Returning to work will depend on the type of procedure and the results. Your doctor will discuss this with you. CALL YOUR DOCTOR FOR ANY OF THE FOLLOWING: *If bleeding from the puncture site occurs- Apply gentle pressure to site with clean cloth and call your doctor or EMS. * If a knot or lump forms under the skin, increases in size, or causes pain. * If bruising appears to be worsening or moving further down your leg instead of disappearing. * Temperature above 101 F. CARE OF YOUR GROIN INCISION; * Bruising or purple discoloration of the skin near the puncture site is common. * You may shower only, no bathtub bathing for 5 days. Be careful to avoid slipping as your leg may feel stiff. * If a closure device was used on your femoral artery, please see the attached guide regarding care of the device and your leg. * Leave dressing on FOR 24 hours. CARE OF YOUR WRIST INCISION; * Bruising or purple discoloration of the skin near the puncture site is common. * You may shower. * DO NOT submerge wrist. * Leave dressing on FOR 24 hours. DOMINIC RACHEL MD Dec 01, 2021 09:54
--- NOTE | 2021-12-01 09:59 | Peripheral Report ---
Peripheral Report Physician (s)/Recovery Coordinator (s) Physician DOMINIC WOODS MD Pre-Procedure Diagnosis Pre-Procedure Diagnosis: Nonhealing foot ulcer Post-Procedure Note Procedure Start Date: Dec 01, 2021 Name of Procedure: Bilateral lower extremities runoff Third order Stenting of the left SFA Findings/Procedure Note PROCEDURE NOTE: 66-year-old lady with a history of peripheral arterial disease nonhealing foot ulcer, had an abnormal TBI/TBI on the left. Scheduled for peripheral angiogram. After explaining the procedure to the patient, all pros and cons were explained, all questions were answered. The patient signed the consent and then she was placed on the cardiac catheterization laboratory. The patient was placed on the cardiac catheterization laboratory. Groin was prepped SL fashion local anesthesia was used. Sheath placed in the right femoral artery, runoff to the right leg was done, then using a rim catheter I did the runoff to the left leg, I was unable to advance Storq wire I used UF catheter and advanced a Storq wire distally then exchanged the catheter and the sheath an d used 6 Turkmen 45 cm sheath advanced to the proximal SFA, proceeded with balloon angioplasty for severe stenosis in the distal SFA using 5.0 balloon then 6.0 balloon then I proceeded with deployment of Supera 6 x 60 postdilated with a 6.0 balloon. Angiogram showed excellent result with excellent flow. Sheath was exchanged again into short 6 Turkmen sheath, closure device deployed. FINDINGS: Right lower extremity: Good flow on the right lower extremity with nonobstr uctive disease down to the trifurcation, slow flow distally. No significant obstructive disease was noted Left lower extremity: Severe stenosis in the distal SFA successful balloon angioplasty and stenting using Supera 6 x 60 postdilated with excellent results, excellent flow down to the foot. Mild disease at the trifurcation, nonobstructive disease CONCLUSIONS: 1. Severe stenosis of the distal left SFA with successful deployment of Supera 6 x 60 with excellent results, mild disease of the trifurcation, excellent flow down to the foot post intervention 2. Mild disease on the right lower extremity with good flow, slow flow distally probably due to the catheter, nonobstructive disease DISCUSSION AND RECOMMENDATIONS: Patient was started on aspirin and Plavix, continue to maximize medical therapy Anesthesia Type: Conscious Sedation Estimated blood loss (mL): 25 ml Contrast Amount: 25 ml Total Radiation Dose: 163 mGy Post-Procedure Diagnosis Post-operative diagnosis: Nonhealing foot ulcer Peripheral arterial disease Hypertension Hyperlipidemia DOMINIC WOODS MD Dec 01, 2021 09:59
[2021-12-01] MEDS ORDERED: PATIENT MAY USE OWN MEDS, ALL PO SCH (10:00)
[2021-12-01] MEDS ORDERED: NS IV 1000 ML 1,000 ML IV SCH (10:00)
[2021-12-01] MEDS ORDERED: APIX5TAB PO (16:21)
[2021-12-02] MEDS ORDERED: ASPIRIN E.C. 81 MG (ECOTRIN) TAB PO SCH (09:00)
[2021-12-02] MEDS ORDERED: CLOPIDOGREL 75 MG (PLAVIX) TABLET PO SCH (09:00)
== END 2021-12-01 16:15 | disposition home or self-care (01) ==
LOC: CATH 09:00 → CSD 10:22 → CATH 16:15
PROVIDERS: ATTEND Internal Medicine Cardiovascular Disease
DX: L97.509 Non-pressure chronic ulcer of other part of unspecified foot with unspecified severity (principal); I70.202 Unspecified atherosclerosis of native arteries of extremities, left leg; I10 Essential (primary) hypertension; I65.29 Occlusion and stenosis of unspecified carotid artery; E03.9 Hypothyroidism, unspecified; F17.210 Nicotine dependence, cigarettes, uncomplicated; Z79.82 Long term (current) use of aspirin; Z79.4 Long term (current) use of insulin; Z79.899 Other long term (current) drug therapy; Z83.3 Family history of diabetes mellitus; Z80.9 Family history of malignant neoplasm, unspecified
CPT/HCPCS: 36247; 37226; 71045; 75716; 80053; 80061; 82947; 85027; 85610; 85730; 87081; C1725 ×2; C1760; C1769 ×2; C1876; C1887; C1894 ×3; 36415

== ENCOUNTER → 2021-12-04 | Outpatient (CLI) | payer MEDICARE, MEDICAID ==
[~2021-12-04] MED LIST changes: +APIX5TAB PO; +CLOP75TA69 PO; -HEParin (CATH LAB) 2,000 ML IV ONE; -LIDOCAINE 1% INJ 20 ML VIAL ONE; -NS IV 1000 ML 1,000 ML IV SCH; -NS IV 1000 ML 1,000 ML ONE; -fentaNYL INJ 100 MCG/2 ML AMP ONE
== END ==
LOC: WOUNDCARE 12:24
PROVIDERS: ATTEND Family Medicine
DX: I96 Gangrene, not elsewhere classified (principal); E13.621 Other specified diabetes mellitus with foot ulcer; L97.522 Non-pressure chronic ulcer of other part of left foot with fat layer exposed; L03.116 Cellulitis of left lower limb; T65.222A Toxic effect of tobacco cigarettes, intentional self-harm, initial encounter
CPT/HCPCS: 87070; 87077; 87205; 99213

== ENCOUNTER → 2021-12-11 | Outpatient (CLI) | payer MEDICARE, MEDICAID | LOC: WOUNDCARE 12:22 | PROVIDERS: ATTEND Family Medicine | DX: E11.621 Type 2 diabetes mellitus with foot ulcer (principal); L97.522 Non-pressure chronic ulcer of other part of left foot with fat layer exposed; E11.65 Type 2 diabetes mellitus with hyperglycemia; E11.42 Type 2 diabetes mellitus with diabetic polyneuropathy; L03.116 Cellulitis of left lower limb; T65.222A Toxic effect of tobacco cigarettes, intentional self-harm, initial encounter; I70.245 Atherosclerosis of native arteries of left leg with ulceration of other part of foot; E11.52 Type 2 diabetes mellitus with diabetic peripheral angiopathy with gangrene | CPT/HCPCS: 11042; G0463 ==

== ENCOUNTER 2021-12-15 19:14 | Emergency (ER) | payer MEDICARE, MEDICAID ==
[~2021-12-15] VITALS: Ht 165 cm; Wt 113.0 kg
[2021-12-15 19:18] VITALS: BP 162/104
--- NOTE | 2021-12-15 19:44 | ED General ---
General Stated Complaint: HEART RACING Source of Information: Patient, Old Records History of Present Illness Date Seen by Provider: Dec 15, 2021 Time Seen by Provider: 19:21 Initial Comments 66-year-old female presenting with complaints of her heart racing. She states that this started around 6:30 PM tonight. It came on after she had eaten supper. She is scheduled to have a Holter monitor her soon because Dr. Rachel had seen some atrial fibrillation during a stenting procedure of her leg 2 weeks ago. Patient states that she is not having any chest pain. She has chronic shortness of breath but not any worse than usual. She is not having any nausea, vomiting, diarrhea, pain with urination, fever, chills, dizziness. She takes lisinopril for her blood pressure but is not on any rate controlling medications. She already takes chronic Eliquis. She denies missing any doses of medications. Timing/Duration: 1 Hour Severity: Mild Associated Systoms: No Chest Pain; Cough (chronic and no worse than usual); No Diaphoresis, No Fever/Chills, No Headaches, No Loss of Appetite, No Malaise, No Nausea/Vomiting, No Rash, No Seizure; Shortness of Air (chronic and no worse than usual); No Syncope, No Weakness; Other (chronic non healing ulcer on foot) Allergies and Home Medications Allergies Coded Allergies: midazolam (Verified Allergy, Unknown, 07/30/16) Patient Home Medication List Home Medication List Reviewed: Yes Apixaban (Eliquis) 5 Mg Tablet, 5 MG PO BID Prescribed by: DOMINIC RACHEL on 12/01/21 1621 Aspirin (Aspir 81) 81 Mg Tablet.dr, 81 MG PO DAILY, (Reported) Entered as Reported by: JIMMY LUCIANO on 07/30/16 1104 Clopidogrel Bisulfate (Plavix) 75 Mg Tablet, 75 MG PO DAILY Prescribed by: DOMINIC RACHEL on 12/01/21 0954 Insulin Glargine,Hum.rec.anlog (Lantus) 100 Unit/1 Ml Vial, 35 UNIT SQ HS, (Reported) Entered as Reported by: JIMMY LUCIANO on 07/30/16 1104 Levocetirizine Dihydrochloride (Levocetirizine Dihydrochloride) 5 Mg Tablet, 5 MG PO DAILY, (Reported) Entered as Reported by: SARITA FERRARO on 12/01/21720 Lisinopril/Hydrochlorothiazide (Lisinopril-Hctz 10-12.5 mg Tab) 1 Each Tablet, 1 EACH PO DAILY, (Reported) Entered as Reported by: SARITA FERRARO on 12/01/21720 Lovastatin (Lovastatin) 40 Mg Tablet, 40 MG PO DAILY, (Reported) Entered as Reported by: SARITA FERRARO on 12/01/21721 Magnesium Oxide (Magnesium Oxide) 400 Mg Tablet, 400 MG PO BID Prescribed by: CARMELLA WONG on 12/15/212052 Metoprolol Succinate (Metoprolol Succinate) 25 Mg Tab.er.24h, 25 MG PO DAILY Prescribed by: CARMELLA WONG on 12/15/212052 Omeprazole (Omeprazole) 40 Mg Capsule.dr, 40 MG PO DAILY, (Reported) Entered as Reported by: SARITA FERRARO on 12/01/21720 Review of Systems Review of Systems Constitutional: see HPI EENTM: no symptoms reported Respiratory: see HPI Cardiovascular: see HPI; No chest pain; palpitations; No syncope Gastrointestinal: No nausea, No vomiting Genitourinary: No dysuria, No frequency Musculoskeletal: other (chronic joint and leg issues) Skin: other (chronic non healing ulcer to foot on left) Psychiatric/Neurological: Numbness (neuropathy) Hematologic/Lymphatic: Easy Bleeding (takes Eliquis) Past Kmwbaaq-Rzalkb-Cydegy Hx Patient Social History Tobacco Use?: Yes Tobacco type used: Cigarettes Smoking Status: Current Everyday Smoker Substance use?: No Alcohol Use?: No Immunizations Up To Date First/Initial COVID19 Vaccinat: NA Past Medical History Surgery/Hospitalization HX: COPD, DM, HTN Surgeries: Yes Section, Gallbladder, Hysterectomy, Lumpectomy Respiratory: Yes COPD Cardiac: Yes High Cholesterol, Hypertension Neurological: Yes Neuropathy Gastrointestinal: Yes Chronic Diarrhea Musculoskeletal: Yes Arthritis Endocrine: Yes Diabetes, Non-Insulin dep Physical Exam Vital Signs Vital Signs - First Documented 12/15/21 19:18 Temp 36.3 Pulse 140 Resp 14 B/P (MAP) 162/104 (123) Pulse Ox 100 O2 Delivery Room Air Capillary Refill : Height, Weight, BMI Height: 5'7" Weight: 239lbs. oz. 108.193344fo; 42.55 BMI Method:Stated General Appearance: No Apparent Distress, Obese HEENT: Pharynx Normal Neck: Full Range of Motion, Normal Inspection, Non Tender, Supple Respiratory: Chest Non Tender, Lungs Clear, Normal Breath Sounds, No Accessory Muscle Use, No Respiratory Distress Cardiovascular: Irregularly Irregular, Tachycardia Gastrointestinal: Normal Bowel Sounds, No Pulsatile Mass, Non Tender, Soft Rectal: Deferred Extremity: Other (wearing splint on LLE) Neurologic/Psychiatric: Alert, Oriented x3 Skin: Warm/Dry Progress/Results/Core Measures Suspected Sepsis SIRS Temperature: Pulse: Respiratory Rate: Laboratory Tests 12/15/21 19:41: White Blood Count 12.9H Blood Pressure / Mean: Laboratory Tests 12/15/21 19:41: Creatinine 0.86, INR Comment 1.0, Platelet Count 321, Total Bilirubin 0.3 Results/Orders Lab Results Laboratory Tests Test 12/15/21 19:41 Range/Units White Blood Count 12.9 H 4.3-11.0 10^3/uL Red Blood Count 3.94 3.80-5.11 10^6/uL Hemoglobin 12.8 11.5-16.0 g/dL Hematocrit 39 35-52 % Mean Corpuscular Volume 98 80-99 fL Mean Corpuscular Hemoglobin 32 25-34 pg Mean Corpuscular Hemoglobin Concent 33 32-36 g/dL Red Cell Distribution Width 12.4 10.0-14.5 % Platelet Count 321 130-400 10^3/uL Mean Platelet Volume 10.1 9.0-12.2 fL Immature Granulocyte % (Auto) 0 % Neutrophils (%) (Auto) 56 42-75 % Lymphocytes (%) (Auto) 35 12-44 % Monocytes (%) (Auto) 7 0-12 % Eosinophils (%) (Auto) 1 0-10 % Basophils (%) (Auto) 1 0-10 % Neutrophils # (Auto) 7.3 1.8-7.8 X 10^3 Lymphocytes # (Auto) 4.5 H 1.0-4.0 X 10^3 Monocytes # (Auto) 0.9 0.0-1.0 X 10^3 Eosinophils # (Auto) 0.1 0.0-0.3 10^3/uL Basophils # (Auto) 0.1 0.0-0.1 10^3/uL Immature Granulocyte # (Auto) 0.1 0.0-0.1 10^3/uL Prothrombin Time 13.3 12.2-14.7 SEC INR Comment 1.0 0.8-1.4 Activated Partial Thromboplast Time 31 24-35 SEC Sodium Level 140 135-145 MMOL/L Potassium Level 3.6 3.6-5.0 MMOL/L Chloride Level 103 98-107 MMOL/L Carbon Dioxide Level 23 21-32 MMOL/L Anion Gap 14 5-14 MMOL/L Blood Urea Nitrogen 21 H 7-18 MG/DL Creatinine 0.86 0.60-1.30 MG/DL Estimat Glomerular Filtration Rate 74 BUN/Creatinine Ratio 24 Glucose Level 154 H 70-105 MG/DL Calcium Level 9.0 8.5-10.1 MG/DL Corrected Calcium 9.0 8.5-10.1 MG/DL Magnesium Level 1.1 *L 1.6-2.4 MG/DL Total Bilirubin 0.3 0.1-1.0 MG/DL Aspartate Amino Transf (AST/SGOT) 16 5-34 U/L Alanine Aminotransferase (ALT/SGPT) 11 0-55 U/L Alkaline Phosphatase 73 40-136 U/L Myoglobin 54.1 10.0-92.0 NG/ML Troponin I < 0.30 <0.30 NG/ML Pro-B-Type Natriuretic Peptide 826.4 H <75.0 PG/ML Total Protein 7.5 6.4-8.2 GM/DL Albumin 4.0 3.2-4.5 GM/DL My Orders Orders - CARMELLA WONG MD Ekg Tracing (12/15/21 19:22) Cbc With Automated Diff (12/15/21 19:35) Magnesium (12/15/21 19:35) Chest 1 View Ap/Pa Only (12/15/21 19:35) Comprehensive Metabolic Panel (12/15/21 19:35) Myoglobin Serum (12/15/21 19:35) Protime With Inr (12/15/21 19:35) Partial Thromboplastin Time (12/15/21 19:35) O2 (12/15/21 19:35) Monitor-Rhythm Ecg Trace Only (12/15/21 19:35) Ed Iv/Invasive Line Start (12/15/21 19:35) Troponin I Fs (12/15/21 19:35) Probnp Fs (12/15/21 19:35) Diltiazem Injection (Cardizem Injection) (12/15/21 19:35) Magnesium 1 Gm/100 Ml Ivpb (Magnesium Anguiano (12/15/21 20:04) Ns (Ivpb) (Sodium Chloride 0.9%) (12/15/21 20:22) Ekg Tracing (12/15/21 20:23) Metoprolol Tartrate (Ir) Tab (Lopressor (12/15/21 20:58) Vital Signs/I&O 12/15/21 12/15/21 12/15/21 12/15/21 19:18 19:48 20:15 21:16 Temp 36.3 Pulse 140 141 87 82 Resp 14 15 19 15 B/P (MAP) 162/104 (123) 109/91 109/60 Pulse Ox 100 100 98 99 O2 Delivery Room Air Room Air Room Air Capillary Refill : Progress Note #1: Progress Note ECG on arrival to room delayed due to patient demanding to stop and have a bowel movement prior to going to the room. ECG shows Atrial fibrillation with rate [address] elevation. Will check labs, CXR and electrolytes including cardiac enzymes. Try a dose of Diltaizem 10 mg IV bolus to see if it will help her heart rate lower and possibly go into sinus rhythm or at least be under 100 bpm. Progress Note #2: Progress Note Labs appear stable without acute significant abnormalities other than mild elevation of her white blood cell count of 12.9. She also had magnesium down to 1.1. Her cardiac enzymes were negative for her acute coronary syndrome or DC. Will supplement her mag with 1 gm of Magnesium Sulfate and repeat ECG with rhythm change. She is having a lower rate with the diltiazem bolus but it is still in atrial fibrillation. 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 Rachel Progress Note #3: Progress Note Dr. Joseph was contacted and I reviewed the case with him. He recommended a beta karishma as a calcium channel karishma may contribute to heart failure, especially not knowing EF. Will start Metoprolol 25 mg here and continue at home at least until Dr. Rachel is available Saturday. Continue to supplement Magnesium as well. ECG Initial ECG Impression Date: Dec 15, 2021 Initial ECG Impression Time: 19:17 Initial ECG Rate: 133 Initial ECG Rhythm: A Fib/Flutter Initial ECG Comparisson: Changed Comment Atrial fibrillation with a heart rate of 133 bpm. Incomplete right bundle branch block. Q waves in anteroseptal leads. No acute ST elevation. QT interval 319 ms with a QTc interval 475 ms. The atrial fibrillation is new compared to prior tracings. EKG : EKG Time: 20:48 Rate: 83 Rhythm: A Fib/Flutter ECG Comparisson: Changed (Improved heart rate) Comment Atrial flutter with predominant 3-1 AV block and a rate of 83 bpm. Borderline left axis deviation. No acute ST elevation. QT interval 412 ms with a QTc interval 485 ms. Appears similar to prior tracing other than that heart rate is under 100 now. Diagnostic Imaging Diagonstic Imaging: Xray Plain Films/CT/US/NM/MRI: chest Comments [facility]. [place], [place] NAME: CRIS SERRANO MED REC#: [id number] PT STATUS: REG ER : 1955 PHYSICIAN: CARMELLA WONG MD ADMIT DATE: 12/15/21/ER FS Signed Date of Exam:12/15/21 CHEST 1 VIEW AP/PA ONLY INDICATION: Shortness of breath, tachycardia. FINDINGS: The lungs are clear. No failure, effusion or pneumothorax. IMPRESSION: No acute appearing abnormality Dictated by: Dictated on workstation # [id number] Dict: 12/15/211948 Trans: 12/15/211952 JASEN [id number] Interpreted by: ALMA NIETO Electronically signed by: ALMA NIETO 12/15/211952 Reviewed: Reviewed by Me Departure Impression Primary Impression: Paroxysmal atrial fibrillation Additional Impression: Hypomagnesemia Disposition: HOME, SELF-CARE Condition: Stable Departure-Patient Inst. Decision time for Depature: 20:53 Referrals: [facility] [place] ([place]) Primary Care Physician DOMINIC RACHEL MD Patient Instructions: Atrial Fibrillation and Atrial Flutter ED, Low Magnesium Level (DC) Add. Discharge Instructions: Take Magnesium to help keep your Magnesium levels up in your blood. Take the Metoprolol to help with heart rate and try to help prevent fast rate with the atrial fibrillation. Call Dr. Rachel Saturday about follow up with medicine and to see if he wants any different medicine or just the Magnesium and Metoprolol. See if he still wants Holter Monitor or if it is ok with seeing the Atrial Fibrillation here in the Emergency Department visit. Scripts Magnesium Oxide (Magnesium Oxide) 400 Mg Tablet 400 MG PO BID for low magnesium for 15 Days, #30 TAB 0 Refills Prov: CARMELLA WONG MD 12/15/21 Metoprolol Succinate (Metoprolol Succinate) 25 Mg Tab.er.24h 25 MG PO DAILY for Atrial Fibrillation for 14 Days, #14 TAB 0 Refills Prov: CARMELLA WONG MD 12/15/21 CARMELLA WONG MD Dec 15, 2021 19:44
[2021-12-15 19:45] LABS: BASOPHILS # (AUTO) 0.1 10^3/uL (0.0-0.1); BASOPHILS % (AUTO) 1 % (0-10); EOSINOPHILS # (AUTO) 0.1 10^3/uL (0.0-0.3); EOSINOPHILS % (AUTO) 1 % (0-10); HEMATOCRIT 39 % (35-52); HEMOGLOBIN 12.8 g/dL (11.5-16.0); LYMPHOCYTES # (AUTO) 4.5 X 10^3 (1.0-4.0); LYMPHOCYTES % (AUTO) 35 % (12-44); MEAN CORPUSCULAR HEMOGLOBIN 32 pg (25-34); MEAN CORPUSCULAR HGB CONC 33 g/dL (32-36); MEAN CORPUSCULAR VOLUME 98 fL (80-99); MEAN PLATELET VOLUME 10.1 fL (9.0-12.2); MONOCYTES # (AUTO) 0.9 X 10^3 (0.0-1.0); MONOCYTES % (AUTO) 7 % (0-12); NEUTROPHILS # (AUTO) 7.3 X 10^3 (1.8-7.8); NEUTROPHILS % (AUTO) 56 % (42-75); PLATELET COUNT 321 10^3/uL (130-400); WHITE BLOOD COUNT 12.9 10^3/uL (4.3-11.0)
--- NOTE | 2021-12-15 19:52 | Diagnostic Imaging Report ---
INDICATION: Shortness of breath, tachycardia. FINDINGS: The lungs are clear. No failure, effusion or pneumothorax. IMPRESSION: No acute appearing abnormality Dictated by: Dictated on workstation # [id number]
[2021-12-15 19:56] LABS: PROTHROMBIN TIME PATIENT 13.3 SEC (12.2-14.7)
[2021-12-15 20:03] LABS: BILIRUBIN,TOTAL 0.3 MG/DL (0.1-1.0); CREATININE SERUM 0.86 MG/DL (0.60-1.30); POTASSIUM 3.6 MMOL/L (3.6-5.0)
[2021-12-15 20:04] LABS: MAGNESIUM 1.1 MG/DL (1.6-2.4); TOTAL PROTEIN 7.5 GM/DL (6.4-8.2)
[2021-12-15] MEDS ORDERED: MAGNESIUM 1 GM/100 ML IVPB 100 ML IV STA (20:04)
[2021-12-15] MEDS ORDERED: NS (IVPB) 250 ML IV STA (20:22)
[2021-12-15] MEDS ORDERED: MTP25TSR PO (20:53)
[2021-12-15] MEDS ORDERED: MGX400T PO (20:53)
[2021-12-15] MEDS ORDERED: meTOprolol TARTRATE 25 MG (LOPRESSOR) TABLET PO STA (20:58)
== END 2021-12-15 21:16 | disposition home or self-care (01) ==
LOC: EDUNIT# 19:14 → ER FS 19:15
DX: I48.0 Paroxysmal atrial fibrillation (principal); E83.42 Hypomagnesemia; E66.9 Obesity, unspecified; J44.9 Chronic obstructive pulmonary disease, unspecified; I10 Essential (primary) hypertension; E11.9 Type 2 diabetes mellitus without complications; E78.00 Pure hypercholesterolemia, unspecified; F17.210 Nicotine dependence, cigarettes, uncomplicated; Z68.41 Body mass index [BMI] 40.0-44.9, adult; Z79.01 Long term (current) use of anticoagulants; Z79.82 Long term (current) use of aspirin; Z79.899 Other long term (current) drug therapy
CPT/HCPCS: 36415; 71045; 80053; 83735; 83874; 83880; 84484; 85025; 85610; 85730; 93005; 93041

== ENCOUNTER → 2021-12-18 | Outpatient (CLI) | payer MEDICARE, MEDICAID ==
[~2021-12-18] MED LIST changes: +MGX400T PO; +MTP25TSR PO
== END ==
LOC: CARD 12:00
PROVIDERS: ATTEND Internal Medicine Cardiovascular Disease
DX: I49.9 Cardiac arrhythmia, unspecified (principal)
CPT/HCPCS: 93225; 93226

== ENCOUNTER → 2021-12-18 | Outpatient (CLI) | payer MEDICARE, MEDICAID | LOC: WOUNDCARE 12:15 | PROVIDERS: ATTEND Family Medicine | DX: E11.621 Type 2 diabetes mellitus with foot ulcer (principal); L97.522 Non-pressure chronic ulcer of other part of left foot with fat layer exposed; E11.65 Type 2 diabetes mellitus with hyperglycemia; E11.40 Type 2 diabetes mellitus with diabetic neuropathy, unspecified; L03.116 Cellulitis of left lower limb; T65.222A Toxic effect of tobacco cigarettes, intentional self-harm, initial encounter; I70.245 Atherosclerosis of native arteries of left leg with ulceration of other part of foot; E11.52 Type 2 diabetes mellitus with diabetic peripheral angiopathy with gangrene | CPT/HCPCS: 11042; G0463 ==

== ENCOUNTER → 2021-12-25 | Outpatient (CLI) | payer MEDICARE, MEDICAID | LOC: WOUNDCARE 10:17 | PROVIDERS: ATTEND Family Medicine | DX: E11.621 Type 2 diabetes mellitus with foot ulcer (principal); L97.522 Non-pressure chronic ulcer of other part of left foot with fat layer exposed; E11.65 Type 2 diabetes mellitus with hyperglycemia; E11.40 Type 2 diabetes mellitus with diabetic neuropathy, unspecified; T65.222A Toxic effect of tobacco cigarettes, intentional self-harm, initial encounter; I70.245 Atherosclerosis of native arteries of left leg with ulceration of other part of foot; E11.52 Type 2 diabetes mellitus with diabetic peripheral angiopathy with gangrene | CPT/HCPCS: 11042; G0463 ==

== ENCOUNTER → 2022-01-08 | Outpatient (CLI) | payer MEDICARE, MEDICAID ==
[~2022-01-08] MED LIST changes: +CATHETER FLUSH 10 ML SYR IV PRN; +REGADENOSON 0.4 MG/5 ML SYR (LEXISCAN) IV ONE
[2022-01-08 09:31] VITALS: BP 148/89
--- NOTE | 2022-01-08 12:06 | Cardiology Stress Test Report ---
Stress Test Report Date of Procedure/Referring: Date of Procedure: Jan 08, 2022 PCP Dominic Rachel MD Admitting Physician Center/[facility] Indications: CP Baseline Heart Rate: 69 Baseline Blood Pressure: Blood Pressure Systolic: 148 Blood Pressure Diastolic: 89 Baseline Vitals Vital Signs Date Time Temp Pulse Resp B/P (MAP) Pulse Ox O2 Delivery O2 Flow Rate FiO2 01/08/22 09:31 69 148/89 (108) Baseline EKG: Baseline EKG: NSR Summary After explaining the procedure to the patient, she signed a consent and then brought to the stress nuclear laboratory. Patient received 0.4 mg Lexiscan for stress test, ECG, heart rate and blood pressure were monitored continuously. Resting and stress dose of radio tracer were injected, imaging was acquired and reviewed in short axis, horizontal long axis and vertical long axis views. TID: 0.9 SSS: 3 SDS: 1 EF: 60 1. Patient tolerated Lexiscan well 2. No significant ischemia or infarction on SPECT images 3. Normal left ventricular size, EF 60% DOMINIC RACHEL MD Jan 08, 2022 12:06
== END ==
LOC: CARD 08:15
PROVIDERS: ATTEND Internal Medicine Cardiovascular Disease
DX: R07.2 Precordial pain (principal); I10 Essential (primary) hypertension
CPT/HCPCS: 78452; 93017; A9502

== ENCOUNTER → 2022-01-08 | Outpatient (CLI) | payer MEDICARE, MEDICAID ==
[~2022-01-08] MED LIST changes: -CATHETER FLUSH 10 ML SYR IV PRN
== END ==
LOC: WOUNDCARE 10:41
PROVIDERS: ATTEND Family Medicine
DX: E11.65 Type 2 diabetes mellitus with hyperglycemia (principal); E11.40 Type 2 diabetes mellitus with diabetic neuropathy, unspecified; T65.222A Toxic effect of tobacco cigarettes, intentional self-harm, initial encounter
CPT/HCPCS: 99212

== ENCOUNTER → 2022-01-31 | Day surgery (SDC) | payer MEDICARE, MEDICAID ==
[~2022-01-31] VITALS: Ht 165.1 cm; Wt 112.6 kg
[~2022-01-31] MED LIST changes: +ASCO500T16 PO; +CHOL100048 PO; +CHOL4PAC2 PO; +DRON400T6 PO; +FOLI1TAB57 PO; +NS IV 1000 ML 1,000 ML IV SCH; +NS IV 1000 ML 1,000 ML ONE; +OMG1KC PO; +POTA99TA26 PO; -REGADENOSON 0.4 MG/5 ML SYR (LEXISCAN) IV ONE; +RT-ALBUINH INH; +ZINC220T3 PO; +proPOfol 200 MG/20 ML (DIPRIVAN) VIAL IV ONE
--- NOTE | 2022-01-31 08:54 | Discharge Inst-Post CATH ---
Discharge Inst-CATH/EP Problems Reviewed?: Yes Post Cardiac Cath/EP D/C Inst Follow Up/Plan Appointment with Dr Rachel in 2-4 weeks <b>CARDIAC CATH/EP PROCEDURE DISCHARGE INSTRUCTIONS</b> ACTIVITY * Go Home directly and rest. * Limit activity of the leg (or wrist if it was used) for 7 days including aerobics, swimming, jogging, bicycling, etc. * Restrict stair-climbing for 7 days if possible, if not, climb up with your non-cath leg, then bring together on the same step. * Avoid lifting, pushing, pulling or excessive movement of the affected extremity for 7 days. * Customary sexual activity may be resumed after 2 days-use caution not to use a position that strains or causes pain to the affected extremity. * No driving for 24 hours. * NO SMOKING. * Avoid straining for bowel movements for 7 days. * Gentle walking on level ground is allowed. * Returning to work will depend on the type of procedure and the results. Your doctor will discuss this with you. CALL YOUR DOCTOR FOR ANY OF THE FOLLOWING: *If bleeding from the puncture site occurs- Apply gentle pressure to site with clean cloth and call your doctor or EMS. * If a knot or lump forms under the skin, increases in size, or causes pain. * If bruising appears to be worsening or moving further down your leg instead of disappearing. * Temperature above 101 F. CARE OF YOUR GROIN INCISION; * Bruising or purple discoloration of the skin near the puncture site is common. * You may shower only, no bathtub bathing for 5 days. Be careful to avoid slipping as your leg may feel stiff. * If a closure device was used on your femoral artery, please see the attached guide regarding care of the device and your leg. * Leave dressing on FOR 24 hours. CARE OF YOUR WRIST INCISION; * Bruising or purple discoloration of the skin near the puncture site is common. * You may shower. * DO NOT submerge wrist. * Leave dressing on FOR 24 hours. DOMINIC RACHEL MD Jan 31, 2022 08:54
[2022-01-31 09:23] VITALS: BP 139/96
[2022-01-31 10:08] VITALS: BP 115/54
[2022-01-31 10:12] VITALS: BP 109/60
[2022-01-31 10:20] VITALS: BP 113/56
--- NOTE | 2022-01-31 10:20 | Conscious Sedation/ASA ---
Conscious Sedation Pre-Proced Time 10:20 ASA Score 3 For ASA 3 and 4: Consider anesthesia and medical clearance. Also, for patients with a history of failed moderate sedation consider anesthesia. Airway Lungs Heart ASA score ASA 1: a normal healthy patient ASA 2: a patient with a mild systemic disease (mid diabetes, controlled hypertension, obesity x ASA 3: a patient with a severe systemic disease that limits activity (angina, COPD, prior Myocardial infarction) ASA 4: a patient with an incapacitating disease that is a constant threat to life (CHF, renal failure) ASA 5: a moribund patient not expected to survive 24 hrs. (ruptured aneurysm) ASA 6: a declared brain- patient whose organs are being harvested. For emergent operations, add the letter E after the classification Mallampati Classification Grade 3 Sedation Plan Analgesia, Amnesia, Plan communicated to team members, Discussed options with patient/fam, Discussed risks with patient/fam The patient is an appropriate candidate to undergo the planned procedure, sedation, and anesthesia. The patient immediately re-assessed prior to indication. DOMINIC WOODS MD Jan 31, 2022 10:20
--- NOTE | 2022-01-31 10:21 | Cardioversion ---
Cardioversion PROCEDURE PHYSICIAN: Dominic Rachel DATE OF PROCEDURE: 01/31/22 DIRECT EXTERNAL ELECTRICAL CARDIOVERSION: Indications: Atrial flutter with rapid ventricular rate Preoperative diagnoses: Atrial flutter with rapid ventricular rate Postoperative diagnosis: Sinus rhythm, Successful Electrical Cardioversion Anesthesia: By Anesthesia services Complications: None Specimen: None Contrast: 0 Flouroscopy: none Procedure Details: The patient was brought the mason tender restoration labor after informed consent was taken, all the risks and complications were explained including the risk of stroke. Electrical cardioversion was carried out with anesthesia support with propofol. 200 joules of synchronized shock was delivered through external patches which promptly restored sinus rhythm. The patient tolerated the procedure well. Conclusions: Successful electrical cardioversion in terminating atrial flutter Final Diagnosis: Paroxysmal atrial flutter Paroxysmal atrial fibrillation Palpitation Hypertension DOMINIC RACHEL MD Jan 31, 2022 10:21
[2022-01-31 10:24] LABS: ALBUMIN 3.9 GM/DL (3.2-4.5); BILIRUBIN,TOTAL 0.7 MG/DL (0.1-1.0); CALCIUM 9.3 MG/DL (8.5-10.1); CREATININE SERUM 1.17 MG/DL (0.60-1.30); TOTAL PROTEIN 7.8 GM/DL (6.4-8.2)
[2022-01-31 10:37] VITALS: BP 105/51
--- NOTE | 2022-01-31 12:33 | Anesthesia-General Post-Op ---
MAC Patient Condition Mental Status/LOC: Same as Preop Cardiovascular: Satisfactory Nausea/Vomiting: Absent Respiratory: Satisfactory Pain: Controlled Complications: Absent Post Op Complications Complications None Follow Up Care/Instructions Patient Instructions None needed. Anesthesiology Discharge Order Discharge Order Patient is doing well, no complaints, stable vital signs, no apparent adverse anesthesia problems. No complications reported per nursing. GARUI ABRAHAM CRNA Jan 31, 2022 12:33
== END | disposition home or self-care (01) ==
LOC: SDC 08:20
PROVIDERS: ATTEND Internal Medicine Cardiovascular Disease
DX: I48.92 Unspecified atrial flutter (principal); I48.0 Paroxysmal atrial fibrillation; R00.2 Palpitations; I10 Essential (primary) hypertension; I49.9 Cardiac arrhythmia, unspecified; I25.10 Atherosclerotic heart disease of native coronary artery without angina pectoris; F17.210 Nicotine dependence, cigarettes, uncomplicated; E11.51 Type 2 diabetes mellitus with diabetic peripheral angiopathy without gangrene; E78.5 Hyperlipidemia, unspecified; I65.23 Occlusion and stenosis of bilateral carotid arteries; Z79.01 Long term (current) use of anticoagulants; Z79.4 Long term (current) use of insulin; Z79.02 Long term (current) use of antithrombotics/antiplatelets; Z79.899 Other long term (current) drug therapy; Z79.82 Long term (current) use of aspirin
CPT/HCPCS: 36415; 80053; 92960; 93005

== ENCOUNTER 2022-04-24 10:03 | Observation (INO) | payer MEDICARE, MEDICAID ==
[~2022-04-24] VITALS: Ht 170.1 cm; Wt 116.8 kg
[~2022-04-24 10:03] MED LIST changes: +CHOL4PAC14 PO; -CHOL4PAC2 PO; -NS IV 1000 ML 1,000 ML IV SCH; -NS IV 1000 ML 1,000 ML ONE; +OMEP20TA56 PO; -OMEP20TA7 PO; -proPOfol 200 MG/20 ML (DIPRIVAN) VIAL IV ONE
[2022-04-24] MEDS ORDERED: DOFETILIDE 125 MCG (TIKOSYN) CAPSULE PO SCH (10:45)
--- NOTE | 2022-04-24 10:57 | Cardiology History & Physical ---
HPI-Cardiology Cardiology Consultation Date of Consultation 04/24/22 Date of Admission Time Seen by Provider: 10:53 Indication: Paroxysmal atrial fibrillation HPI 67-year-old lady with history of paroxysmal atrial fibrillation, peripheral arterial disease, she was seen by Dr. Jose and she was scheduled for admission and loading with Tikosyn. Denies any chest pain, no shortness of breath. No syncope or near syncopal episodes. PMH-Cardiology Surgeries Yes Respiratory Yes Cardiovascular Yes Neurological Yes Neuropathy Gastrointestinal Yes Gastroesophageal Reflux Musculoskeletal Yes Arthritis Endocrine Yes Diabetes, Non-Insulin dep Other PMHx Discussed below Social History Patient Social History Marrital Status: Employed/Student: retired Have you traveled recently?: No Alcohol Use?: No Family Hx Other Noncontributory to her current condition ROS-Cardiology Review of Systems General: No Chills, No Night Sweats, No Fatigue, No Malaise, No Appetite HEENT: No Head Aches, No Visual Changes, No Eye Pain, No Ear Pain, No Dysphasia, No Sinus Congestion, No Post Nasal Drip, No Sore Throat Pulmonary: No Dyspnea, No Cough, No Pleuritic Chest Pain Cardiovascular: No: Chest Pain, Palpitations, Orthopnea, Paroxysmal Noc. Dyspnea, Edema, Lt Headedness Gastrointestinal: No: Nausea, Vomiting, Abdominal Pain, Diarrhea, Constipation, Melena, Hematochezia Genitourinary: No Dysuria, No Frequency, No Incontinence, No Hematuria, No Retention Musculoskeletal: No: neck pain, shoulder pain, arm pain, back pain, hand pain, leg pain, foot pain Neurological: No: Weakness, Numbness, Incoordination, Change in speech, Confusion, Seizures Home Medications & Allergies Allergies: Coded Allergies: midazolam (Verified Allergy, Unknown, 07/30/16) Home Medication List Reviewed: Yes Exam-Cardiology Vital Signs Vital Signs Date Time Temp Pulse Resp B/P (MAP) Pulse Ox O2 Delivery O2 Flow Rate FiO2 04/24/22 10:32 35.5 84 16 121/82 99 Room Air Exam General Appearance: Alert, Oriented X3, Cooperative, No Acute Distress HEENT: Atraumatic, PERRLA Respiratory: Clear to Auscultation, Normal Air Movement Cardiovascular: Regular Rate, Normal S1, Normal S2, No Murmurs Abdominal: Normal Bowel Sounds, Soft, No Tenderness, No Hepatosplenomegaly, No Masses Extremities: No Clubbing, No Cyanosis, No Edema, Normal Pulses, No Tenderness/Swelling Skin: No Rashes, No Breakdown, No Significant Lesion Neuro: Normal Gait, Normal Speech, Strength at 5/5 X4 Ext, Normal Tone, Sensation Intact Psych/Mental Status: Mental Status NL, Mood NL A/P-Cardiology Admission Diagnosis Paroxysmal atrial fibrillation Palpitation Peripheral arterial disease Hypertension Hyperlipidemia Admission Status: Inpatient Order (span 2 midnights) Reason for Inpatient Admission: Paroxysmal atrial fibrillation Loading with Tikosyn Assessment/Plan Paroxysmal atrial fibrillation, still having multiple episodes of atrial fibrillation Patient had electrical cardioversion in January 2022. She was maintained on Multaq. Still having multiple episodes of atrial fibrillation after cardioversion. She was seen by Dr. Jose and recommendation was to stop Multaq and try Tikosyn. Patient was admitted for loading with Tikosyn and monitoring her QTC. Peripheral vascular disease, had left Foot ulcer, initially improving, currently returning back. Abnormal ARGENIS, was 1.01 on the left with TBI 0.62. Slightly diminished waveform, angiogram was done on December 01, 2021 showing severe stenosis of the distal left SFA with successful deployment of Supera 6 x 60 with excellent results, mild disease of the trifurcation with excellent flow down to the foot. Mild disease on the right lower extremity with good flow. She has slow flow distally. Continue to monitor Increased bruisability, maintained on Plavix and Eliquis. Sinus bradycardia, underlying sinus node dysfunction, exacerbated by the use of beta blockers. Echocardiogram was done on November 09, 2021 showing normal LV size, EF 55 to 65%, left atrium 4.86 cm, mild mitral regurgitation, PA pressure 30 to 35 mmHg. Stress test was done in December 2021 showing no significant ischemia or infarction, stress score 3, SDS 1, ejection fraction 60%. Continue to monitor Hypertension, controlled on current medication Hyperlipidemia maintained on simvastatin, monitor lipids Diabetes mellitus, followed and managed by primary care physician Mild bilateral carotid stenosis, ultrasound was done in October 2021. Continue to monitor Tobaccoism, educated on smoking cessation BMI 42, we discussed weight loss and exercise. DOMINIC WOODS MD April 24, 2022 10:57
[2022-04-24 11:29] LABS: HEMATOCRIT 39 % (35-52); HEMOGLOBIN 12.9 g/dL (11.5-16.0); MEAN CORPUSCULAR HEMOGLOBIN 32 pg (25-34); MEAN CORPUSCULAR HGB CONC 33 g/dL (32-36); MEAN CORPUSCULAR VOLUME 97 fL (80-99); MEAN PLATELET VOLUME 10.4 fL (9.0-12.2); PLATELET COUNT 218 10^3/uL (130-400); WHITE BLOOD COUNT 9.4 10^3/uL (4.3-11.0)
[2022-04-24 11:48] LABS: ALBUMIN 3.8 GM/DL (3.2-4.5); POTASSIUM 4.5 MMOL/L (3.6-5.0)
[2022-04-24 11:49] LABS: CALCIUM 9.4 MG/DL (8.5-10.1)
[2022-04-24 11:51] LABS: TOTAL PROTEIN 7.1 GM/DL (6.4-8.2)
[2022-04-24 11:52] LABS: BILIRUBIN,TOTAL 0.5 MG/DL (0.1-1.0)
[2022-04-24 11:54] LABS: CREATININE SERUM 1.1 MG/DL (0.60-1.30)
[2022-04-24] MEDS: DOFETILIDE 250 MCG CAP (TIKOSYN) NON-FORMLUARY PO SCH ×2 (12:00→22:51)
--- NOTE | 2022-04-24 13:21 | Tele-ICU Progress Note ---
Progress Note Video assessment done , Hemodynamically stable Available charting reviewed NO TELE-ICU CONSULT REQUESTED CONTINUE TO MONITOR PER USUAL TELE-ICU PROTOCOL No need for Tele-ICU interventions Plans as delineated by bedside physicians / consultants Focused Exam Height, Weight, BMI Height: 5'7" Weight: 239lbs. oz. [id number]; 40.36 BMI Method:Stated MAX KILGORE MD April 24, 2022 13:21
[2022-04-24] MEDS ORDERED: DILT-27 PO (14:55)
[2022-04-24] MEDS ORDERED: CLOP75TA28 PO (15:02)
[2022-04-24] MEDS ORDERED: TRZ50T PO (15:02)
[2022-04-24] MEDS ORDERED: MAGN400T7 PO (15:02)
[2022-04-24] MEDS ORDERED: DULO30CA49 PO (15:02)
[2022-04-24] MEDS ORDERED: PANT40TA52 PO (15:02)
[2022-04-24] MEDS ORDERED: APIX5TAB PO (15:02)
[2022-04-24] MEDS ORDERED: ACET-168 PO (15:03)
[2022-04-24] MEDS ORDERED: APIXABAN 5 MG (ELIQUIS) TABLET PO SCH (21:00)
--- NOTE | 2022-04-25 08:02 | Cardiology Progress Note ---
Subjective Date Seen by Provider: Apr 25, 2022 Time Seen by Provider: 08:01 Subjective/Events-last exam Patient was seen at bedside, laying down comfortably Feeling well. No new complaint. Review of Systems General: No Chills, No Night Sweats, No Fatigue, No Malaise, No Appetite, No Other HEENT: No Head Aches, No Visual Changes, No Eye Pain, No Ear Pain, No Dysphasia, No Sinus Congestion, No Post Nasal Drip, No Sore Throat, No Other Pulmonary: No Dyspnea, No Cough, No Pleuritic Chest Pain, No Other Cardiovascular: No: Chest Pain, Palpitations, Orthopnea, Paroxysmal Noc. Dyspnea, Edema, Lt Headedness, Other Objective-Cardiology Exam Last Set of Vital Signs Vital Signs 04/25/22 14:14 Temp 36.0 Pulse 88 Resp 22 B/P (MAP) 121/94 Pulse Ox 97 O2 Delivery Room Air I&O Intake and Output 04/25/22 00:00 Intake Total 600 ml Balance 600 ml Intake Oral 600 ml # Voids 7 Daily Weight Change No General: Alert, Oriented X3, Cooperative, No Acute Distress HEENT: Atraumatic, PERRLA Lungs: Clear to Auscultation, Normal Air Movement Heart: Normal S1, Normal S2, No Murmurs, Other Abdomen: Normal Bowel Sounds, Soft, No Tenderness, No Hepatosplenomegaly, No Masses Extremities: No Clubbing, No Cyanosis, No Edema, Normal Pulses, No Tenderness/Swelling Skin: No Rashes, No Breakdown, No Significant Lesion Neuro: Normal Gait, Normal Speech, Strength at 5/5 X4 Ext, Normal Tone, Sensation Intact Psych/Mental Status: Mental Status NL, Mood NL Results Lab A/P-Cardiology Admission Diagnosis Paroxysmal atrial fibrillation Palpitation Peripheral arterial disease Hypertension Hyperlipidemia Assessment/Plan Paroxysmal atrial fibrillation, still having multiple episodes of atrial fibrillation Patient had electrical cardioversion in January 2022. She was maintained on Multaq. Still having multiple episodes of atrial fibrillation after cardioversion. She was seen by Dr. Jose and recommendation was to stop Multaq and try Tikosyn. Patient was admitted for loading with Tikosyn and monitoring her QTC. QTC on April 25, 2022 is 403. Still in atrial fibrillation/flutter Peripheral vascular disease, had left Foot ulcer, initially improving, currently returning back. Abnormal ARGENIS, was 1.01 on the left with TBI 0.62. Slightly diminished waveform, angiogram was done on December 01, 2021 showing severe stenosis of the distal left SFA with successful deployment of Supera 6 x 60 with excellent results, mild disease of the trifurcation with excellent flow down to the foot. Mild disease on the right lower extremity with good flow. She has slow flow distally. Continue to monitor Increased bruisability, maintained on Plavix and Eliquis. Sinus bradycardia, underlying sinus node dysfunction, exacerbated by the use of beta blockers. Echocardiogram was done on November 09, 2021 showing normal LV size, EF 55 to 65%, left atrium 4.86 cm, mild mitral regurgitation, PA pressure 30 to 35 mmHg. Stress test was done in December 2021 showing no significant ischemia or infarction, stress score 3, SDS 1, ejection fraction 60%. Continue to monitor Hypertension, controlled on current medication Hyperlipidemia maintained on simvastatin, monitor lipids Diabetes mellitus, followed and managed by primary care physician Mild bilateral carotid stenosis, ultrasound was done in October 2021. Continue to monitor Tobaccoism, educated on smoking cessation BMI 42, we discussed weight loss and exercise. Patient had QTC prolongation after initiating Tikosyn Patient will be discharged home and planning to restart Multaq as an outpatient. Hospital Course Patient was admitted to load with Tikosyn and she was unable to tolerate it due to prolong QTc Final Diagnosis Paroxysmal atrial fibrillation Palpitation Peripheral arterial disease Hypertension Hyperlipidemia DOMINIC WOODS MD Apr 25, 2022 08:02
[2022-04-25] MEDS ORDERED: lisINopril 10 MG (PRINIVIL) TABLET PO SCH ×2 (09:00→10:10)
[2022-04-25] MEDS ORDERED: PANTOPRAZOLE 40 MG (PROTONIX) TAB PO SCH ×2 (09:00→10:09)
[2022-04-25] MEDS ORDERED: dilTIAZem120 MG (CARDIZEM CD) CAP PO SCH ×2 (09:00→10:08)
[2022-04-25] MEDS ORDERED: CLOPIDOGREL 75 MG (PLAVIX) TABLET PO SCH ×2 (09:00→09:55)
[2022-04-25] MEDS ORDERED: PATIENT MAY USE OWN MEDS, ALL MC SCH (09:00)
[2022-04-25] MEDS ORDERED: ASPIRIN E.C. 81 MG (ECOTRIN) TAB PO SCH ×2 (09:00→09:48)
[2022-04-25] MEDS ORDERED: APIXABAN 5 MG (ELIQUIS) TABLET PO SCH (09:54)
[2022-04-25] MEDS ORDERED: PATIENT'S OWN MED (RX USE ONLY) PO SCH (10:11)
[2022-04-25] MEDS: DOFETILIDE 250 MCG CAP (TIKOSYN) NON-FORMLUARY PO SCH (10:21)
--- NOTE | 2022-04-25 13:21 | Discharge Inst-Post CATH ---
Discharge Inst-CATH/EP Problems Reviewed?: Yes Post Cardiac Cath/EP D/C Inst Follow Up/Plan Appointment with Dr. Rachel's office next week <b>CARDIAC CATH/EP PROCEDURE DISCHARGE INSTRUCTIONS</b> ACTIVITY * Go Home directly and rest. * Limit activity of the leg (or wrist if it was used) for 7 days including aerobics, swimming, jogging, bicycling, etc. * Restrict stair-climbing for 7 days if possible, if not, climb up with your non-cath leg, then bring together on the same step. * Avoid lifting, pushing, pulling or excessive movement of the affected extremity for 7 days. * Customary sexual activity may be resumed after 2 days-use caution not to use a position that strains or causes pain to the affected extremity. * No driving for 24 hours. * NO SMOKING. * Avoid straining for bowel movements for 7 days. * Gentle walking on level ground is allowed. * Returning to work will depend on the type of procedure and the results. Your doctor will discuss this with you. CALL YOUR DOCTOR FOR ANY OF THE FOLLOWING: *If bleeding from the puncture site occurs- Apply gentle pressure to site with clean cloth and call your doctor or EMS. * If a knot or lump forms under the skin, increases in size, or causes pain. * If bruising appears to be worsening or moving further down your leg instead of disappearing. * Temperature above 101 F. CARE OF YOUR GROIN INCISION; * Bruising or purple discoloration of the skin near the puncture site is common. * You may shower only, no bathtub bathing for 5 days. Be careful to avoid slipping as your leg may feel stiff. * If a closure device was used on your femoral artery, please see the attached guide regarding care of the device and your leg. * Leave dressing on FOR 24 hours. CARE OF YOUR WRIST INCISION; * Bruising or purple discoloration of the skin near the puncture site is common. * You may shower. * DO NOT submerge wrist. * Leave dressing on FOR 24 hours. DOMINIC RACHEL MD Apr 25, 2022 13:21
[2022-04-25 14:14] VITALS: BP 121/94
== END 2022-04-25 14:15 | disposition home or self-care (01) ==
LOC: ICU 10:11
PROVIDERS: ADMIT Internal Medicine Cardiovascular Disease; ATTEND Internal Medicine Cardiovascular Disease
DX: I48.0 Paroxysmal atrial fibrillation (principal); I73.9 Peripheral vascular disease, unspecified; I10 Essential (primary) hypertension; I65.23 Occlusion and stenosis of bilateral carotid arteries; E78.5 Hyperlipidemia, unspecified; R00.1 Bradycardia, unspecified; E11.9 Type 2 diabetes mellitus without complications; T14.8XXA Other injury of unspecified body region, initial encounter; Z79.899 Other long term (current) drug therapy; Z79.01 Long term (current) use of anticoagulants; Z68.41 Body mass index [BMI] 40.0-44.9, adult
CPT/HCPCS: 36415; 80053; 84443; 85027; 93005; G0378

== ENCOUNTER 2022-06-20 07:48 | Day surgery (SDC) | payer MEDICARE, MEDICAID ==
[2022-06-20] VITALS (11 sets, daily range): BP systolic 108–160; BP diastolic 59–91
[~2022-06-20] VITALS: Ht 165.1 cm; Wt 117.0 kg
[~2022-06-20 07:48] MED LIST changes: +ACET-168 PO; +CLOP75TA28 PO; +DILT-27 PO; +DULO30CA49 PO; +MAGN400T7 PO; +PANT40TA52 PO; +TRZ50T PO
[2022-06-20] MEDS ORDERED: LIDOCAINE 1% INJ 20 ML VIAL ONE (07:59)
[2022-06-20] MEDS ORDERED: NS IV 1000 ML 1,000 ML ONE (08:00)
[2022-06-20] MEDS ORDERED: HEParin (CATH LAB) 1,000 ML IV ONE (08:00)
[2022-06-20] MEDS ORDERED: NS IV 1000 ML 1,000 ML IV SCH ×2 (08:00→11:30)
[2022-06-20 08:33] LABS: BILIRUBIN,URINE NEGATIVE (NEGATIVE); CLARITY,URINE CLEAR; COLOR,URINE YELLOW; GLUCOSE, URINE (UA) NEGATIVE (NEGATIVE); HEMATOCRIT 42 % (35-52); HEMOGLOBIN 13.5 g/dL (11.5-16.0); KETONES,URINE NEGATIVE (NEGATIVE); LEUKOCYTE ESTERASE ,URINE NEGATIVE (NEGATIVE); MEAN CORPUSCULAR HEMOGLOBIN 32 pg (25-34); MEAN CORPUSCULAR HGB CONC 32 g/dL (32-36); MEAN CORPUSCULAR VOLUME 99 fL (80-99); MEAN PLATELET VOLUME 10.2 fL (9.0-12.2); NITRITE,URINE NEGATIVE (NEGATIVE); PH,URINE 5.5 (5-9); PLATELET COUNT 308 10^3/uL (130-400); PROTEIN,URINE NEGATIVE (NEGATIVE); WHITE BLOOD COUNT 11.6 10^3/uL (4.3-11.0)
--- NOTE | 2022-06-20 08:40 | Diagnostic Imaging Report ---
INDICATION: Peripheral vascular disease, evaluation prior to angiography and possible angioplasty/stent.. TECHNIQUE: Single view chest 8:27 AM. CORRELATION STUDY: 12/15/2021 FINDINGS: The heart size, mediastinal configuration and pulmonary vascularity are within normal limits. Haley overall are mildly hyperinflated but generally clear. No infiltrate. IMPRESSION: 1. Negative appearing single view chest. Dictated by: Dictated on workstation # [id number]
[2022-06-20 08:43] LABS: BACTERIA,URINE TRACE /HPF; SQUAMOUS EPITHELIAL CELL,UR 0-2 /HPF
[2022-06-20] MEDS ORDERED: ASPI-999 PO (08:45)
[2022-06-20 08:54] LABS: ALBUMIN 4.1 GM/DL (3.2-4.5); BILIRUBIN,TOTAL 0.6 MG/DL (0.1-1.0); CALCIUM 9.7 MG/DL (8.5-10.1); CREATININE SERUM 1.34 MG/DL (0.60-1.30); POTASSIUM 4.5 MMOL/L (3.6-5.0); TOTAL PROTEIN 7.8 GM/DL (6.4-8.2)
[2022-06-20] MEDS ORDERED: fentaNYL INJ 100 MCG/2 ML AMP ONE (09:56)
--- NOTE | 2022-06-20 10:02 | Conscious Sedation/ASA ---
Conscious Sedation Pre-Proced Time 10:01 ASA Score 3 For ASA 3 and 4: Consider anesthesia and medical clearance. Also, for patients with a history of failed moderate sedation consider anesthesia. Airway Lungs Heart ASA score ASA 1: a normal healthy patient ASA 2: a patient with a mild systemic disease (mid diabetes, controlled hypertension, obesity x ASA 3: a patient with a severe systemic disease that limits activity (angina, COPD, prior Myocardial infarction) ASA 4: a patient with an incapacitating disease that is a constant threat to life (CHF, renal failure) ASA 5: a moribund patient not expected to survive 24 hrs. (ruptured aneurysm) ASA 6: a declared brain- patient whose organs are being harvested. For emergent operations, add the letter E after the classification Mallampati Classification Grade 3 Sedation Plan Analgesia, Amnesia, Plan communicated to team members, Discussed options with patient/fam, Discussed risks with patient/fam The patient is an appropriate candidate to undergo the planned procedure, sedation, and anesthesia. The patient immediately re-assessed prior to indication. DOMINIC WOODS MD Jun 20, 2022 10:02
[2022-06-20] MEDS ORDERED: HEParin 1000 UNIT/ML (10ML VIAL) FOR BOLUS ONE (10:54)
[2022-06-20] MEDS ORDERED: CLOPIDOGREL 300 MG (PLAVIX) TABLET PO ONE (11:08)
[2022-06-20] MEDS ORDERED: ASPIRIN 325 MG (5 GR) TABLET ONE (11:08)
--- NOTE | 2022-06-20 11:21 | Discharge Inst-Post CATH ---
Discharge Inst-CATH/EP Problems Reviewed?: Yes Post Cardiac Cath/EP D/C Inst Follow Up/Plan Appointment with Dr. Rachel's office in 2 to 4 weeks <b>CARDIAC CATH/EP PROCEDURE DISCHARGE INSTRUCTIONS</b> ACTIVITY * Go Home directly and rest. * Limit activity of the leg (or wrist if it was used) for 7 days including aer obics, swimming, jogging, bicycling, etc. * Restrict stair-climbing for 7 days if possible, if not, climb up with your non-cath leg, then bring together on the same step. * Avoid lifting, pushing, pulling or excessive movement of the affected extremi ty for 7 days. * Customary sexual activity may be resumed after 2 days-use caution not to use a position that strains or causes pain to the affected extremity. * No driving for 24 hours. * NO SMOKING. * Avoid straining for bowel movements for 7 days. * Gentle walking on level ground is allowed. * Returning to work will depend on the type of procedure and the results. Your doctor will discuss this with you. CALL YOUR DOCTOR FOR ANY OF THE FOLLOWING: *If bleeding from the puncture site occurs- Apply gentle pressure to site with clean cloth and call your doctor or EMS. * If a knot or lump forms under the skin, increases in size, or causes pain. * If bruising appears to be worsening or moving further down your leg instead of disappearing. * Temperature above 101 F. CARE OF YOUR GROIN INCISION; * Bruising or purple discoloration of the skin near the puncture site is common. * You may shower only, no bathtub bathing for 5 days. Be careful to avoid slipping as your leg may feel stiff. * If a closure device was used on your femoral artery, please see the attached guide regarding care of the device and your leg. * Leave dressing on FOR 24 hours. CARE OF YOUR WRIST INCISION; * Bruising or purple discoloration of the skin near the puncture site is common. * You may shower. * DO NOT submerge wrist. * Leave dressing on FOR 24 hours. DOMINIC RACHEL MD Jun 20, 2022 11:21
--- NOTE | 2022-06-20 11:27 | Peripheral Report ---
Peripheral Report Physician (s)/Vocational Education Professional (s) Physician DOMINIC WOODS MD Pre-Procedure Diagnosis Pre-Procedure Diagnosis: Nonhealing foot ulcer Post-Procedure Note Procedure Start Date: Jun 20, 2022 Name of Procedure: Bilateral lower extremity runoff Third order Additional imaging Stenting of the left SFA Findings/Procedure Note PROCEDURE NOTE: 67-year-old lady with peripheral arterial disease, underwent stenting in November 2021 for nonhealing wound. She reported improvement recently she started to have progression of a new wound in her left foot, ARGENIS was abnormal, she was scheduled for peripheral angiogram After explaining the procedure to the patient, all pros and cons were explained, all questions were answered. The patient signed the consent and then she was placed on the cardiac catheterization laboratory. The patient was placed on the cardiac catheterization laboratory. Groin was prepped SL fashion local anesthesia was used. Sheath placed in the right femoral artery, rim catheter was used to cross over and I did angiogram at the bifurcation level then advanced a Storq wire and exchanged to a straight catheter did angiogram with runoff to the left lower extremity then I advanced the straight catheter down to the tibioperoneal trunk, I did DSA imaging to the trifurcation then repeated DSA imaging at the level of the foot. Pressure was measured at the tibioperoneal trunk then I pulled back the catheter to the mid SFA and there was significant gradient. Storq wire was advanced again, straight catheter was removed. Long sheath was placed using 6 Irish sheath with 55 cm. Advanced to the proximal SFA then I advanced [place] 6 x 40 balloon, did 1 inflation then repeated angiogram. There was initially severe stenosis of the proximal old Supera stent after the balloon angioplasty it showed significant improvement provement still having a questionable area at the proximal area to the stent. I proceeded with deployment a second overlapping Supera stent 6 x 30 cm deployed postdilatation with a [place] balloon then angiogram showed excellent results. Sheath was exchanged to a short 6 Irish sheath and I did runoff to the right leg through the sheath down to the trifurcation FINDINGS: Left lower extremity: Left common iliac, common femoral artery are normal Left SFA has minimal disease, Supera stent in the mid SFA is patent, proximal portion of that Supera has severe stenosis. Distal to the stenosis the pressure was recorded 54/34/48, proximal to the lesion pressure was 147/66/96. Successful balloon angioplasty then deployment of a Supera 6 x 30 overlapping with the previous stent proximally with excellent results. Left tibioperoneal trunk, normal Anterior tibial artery, posterior tibial artery and peroneal arteries are normal with slow flow. Right lower extremity: Mild disease with good runoff down to the trifurcation CONCLUSIONS: 1. Severe stenosis at the left mid SFA proximal to the Supera stent at the left mid SFA with successful balloon angioplasty then stenting using Supera 6 x 30 postdilated with 6.0 balloon with excellent results. 2. Otherwise no significant obstructive disease down to the foot 3. No significant obstructive disease on the right side down to the trifurcation DISCUSSION AND RECOMMENDATIONS: Restarted aspirin and Plavix, continue to maximize medical therapy Anesthesia Type: Conscious Sedation Estimated blood loss (mL): 20 ml Contrast Amount: 30 ml Total Radiation Dose: 277 mGy Post-Procedure Diagnosis Post-operative diagnosis: Nonhealing foot ulcer Peripheral arterial disease Hypertension Hyperlipidemia DOMINIC WOODS MD Jun 20, 2022 11:27
[2022-06-20] MEDS ORDERED: CLOP75TA69 PO (11:29)
[2022-06-20] MEDS ORDERED: PATIENT MAY USE OWN MEDS, ALL PO SCH (11:30)
== END 2022-06-20 15:30 | disposition home or self-care (01) ==
LOC: CATH 07:48 → SDC 12:03 → CATH 15:30
PROVIDERS: ATTEND Internal Medicine Cardiovascular Disease
DX: L97.529 Non-pressure chronic ulcer of other part of left foot with unspecified severity (principal); I73.9 Peripheral vascular disease, unspecified; I10 Essential (primary) hypertension; E78.5 Hyperlipidemia, unspecified; Z79.82 Long term (current) use of aspirin; Z87.891 Personal history of nicotine dependence; I48.0 Paroxysmal atrial fibrillation
CPT/HCPCS: 36247; 36248; 37226; 71045; 75716; 80053; 80061; 81000; 85027; 85610; 85730; 87081; 93005; C1725; C1760; C1769 ×2; C1876; C1887 ×2; C1894 ×3; 36415

== ENCOUNTER → 2022-10-05 | Outpatient (CLI) | payer MEDICARE, MEDICAID ==
[~2022-10-05] MED LIST changes: +ASPI-999 PO; -CHOL4PAC14 PO; +CHOL4POW4 PO
== END ==
LOC: CARD 13:38
PROVIDERS: ATTEND Internal Medicine Cardiovascular Disease
DX: I08.2 Rheumatic disorders of both aortic and tricuspid valves (principal); I11.9 Hypertensive heart disease without heart failure; I49.5 Sick sinus syndrome
CPT/HCPCS: 93306

== ENCOUNTER → 2022-10-05 | Outpatient (CLI) | payer MEDICARE, MEDICAID ==
--- NOTE | 2022-10-05 14:34 | Diagnostic Imaging Report ---
Indication: Sick sinus syndrome. Time of Exam: 11:31 AM Comparison is made with prior chest 06/20/2022. Heart size normal. Dual lead left subclavian cardiac pacemaker has both leads in the region of the right ventricle. Lungs are clear. No infiltrate or failure is seen. There is no effusion or pneumothorax. IMPRESSION: No acute cardiopulmonary process is detected. Dictated by: Dictated on workstation # [id number]
== END ==
LOC: RAD 11:09
PROVIDERS: ATTEND Internal Medicine Cardiovascular Disease
DX: I49.5 Sick sinus syndrome (principal)
CPT/HCPCS: 71046

== ENCOUNTER 2022-12-24 05:38 | Outpatient (CLI) | payer MEDICARE, MEDICAID ==
[~2022-12-24] VITALS: Ht 170.2 cm; Wt 122.7 kg
[~2022-12-24 05:38] MED LIST changes: +CLOP-31 PO; -CLOP75TA69 PO
[2022-12-24] MEDS ORDERED: INSU100V5 SQ (15:26)
[2022-12-24] MEDS ORDERED: DIABETES PILL (15:26)
== END 2022-12-24 15:30 | disposition home or self-care (01) ==
LOC: PREOP 05:38
PROVIDERS: ATTEND Specialist
DX: Z01.818 Encounter for other preprocedural examination (principal)

== ENCOUNTER 2022-12-28 08:52 | Day surgery (SDC) | payer MEDICARE, MEDICAID ==
[~2022-12-28] VITALS: Ht 170.2 cm; Wt 122.7 kg
[~2022-12-28 08:52] MED LIST changes: +DIABETES PILL; +INSU100V5 SQ
[2022-12-28] MEDS ORDERED: MOXIFLOXACIN OPHTH SOLN 5 MG/ML 0.3 ML SYRINGE OP ONE (09:00)
[2022-12-28] MEDS ORDERED: TIMOLOL 0.5% (CATARACTS) 0.3 ML BTL OU PRN (09:00)
[2022-12-28] MEDS ORDERED: POVIDONE (BETADINE) OPHTH SOLN 5% 30 ML OP ONE (09:00)
[2022-12-28] MEDS: TETRACAINE 0.5% OPHTH SOLN 4 ML BTL (SINGLE DOSE ONLY) OU PRN ×4 (09:06→09:23)
[2022-12-28] MEDS: PHENYLEPHRINE 10% OPHTH (NEO-SYN) 5 ML BTL OU SCH ×3 (09:12→09:23)
[2022-12-28] MEDS: TROPICAMIDE 1% OPH SOLN (MYDRIACYL) 15 ML BTL OP SCH ×3 (09:12→09:23)
[2022-12-28 09:14] VITALS: BP 150/80
--- NOTE | 2022-12-28 09:20 | Ophthalmologist Pre-Op Note ---
Pre-Operative Progress Note H&P Reviewed The H&P was reviewed, patient examined and no changes noted. Date H&P Reviewed: Dec 28, 2022 Time H&P Reviewed: 09:20 Pre-Op Dx Cataract, Right Eye NANETTE MADRID MD Dec 28, 2022 09:20
[2022-12-28] MEDS ORDERED: fentaNYL INJ 100 MCG/2 ML AMP ONE (09:28)
--- NOTE | 2022-12-28 09:51 | Ophthalmology Operative Report ---
Cataract removal/placement IOL PREOPERATIVE DIAGNOSIS: Cataract Right Eye POSTOPERATIVE DIAGNOSIS: Cataract Right Eye PROCEDURE: Cataract removal and placement of posterior chamber implant, right eye SURGEON: Evangelist [place] ANESTHESIA: Topical with sedation COMPLICATIONS: None ESTIMATED BLOOD LOSS: Minimal DESCRIPTION OF PROCEDURE: After proper informed consent was obtained, the patient, a 67 female, was taken to the Operating Room and the right eye was anesthetized with tetracaine. The right eye was then prepped and draped in the usual manner. A wire lid speculum was placed. A paracentesis was made at the left hand position. Preservative free lidocaine was injected into the anterior chamber followed by viscoelastic. A clear corneal incision was made in the temporal position. A capsulorrhexis was preformed and the central nuclear and cortical material were removed. The posterior capsule was polished and Ned 26.0 [id number] IOL was placed into the capsular bag. The residual viscoelastic was aspirated and balanced saline solution was injected into the anterior chamber. Moxifloxacin was injected into the anterior chamber. The wound was checked and found to be water tight. The patient tolerated the procedure well without complications. EVANGELIST MADRID MD Dec 28, 2022 09:51
[2022-12-28 09:54] VITALS: BP 140/86
[2022-12-28] MEDS ORDERED: acetaZOLAMIDE ER 500 MG CAP (DIAMOX SEQUELS) PO ONE (11:00)
--- NOTE | 2022-12-28 12:12 | Anesthesia-General Post-Op ---
MAC Patient Condition Mental Status/LOC: Same as Preop Cardiovascular: Satisfactory Nausea/Vomiting: Absent Respiratory: Satisfactory Pain: Controlled Complications: Absent Post Op Complications Complications None Follow Up Care/Instructions Patient Instructions None needed. Anesthesiology Discharge Order Discharge Order Patient is doing well, no complaints, stable vital signs, no apparent adverse anesthesia problems. No complications reported per nursing. MELISA HAIR CRNA Dec 28, 2022 12:12
== END 2022-12-28 09:58 | disposition home or self-care (01) ==
LOC: SDC 08:52
PROVIDERS: ATTEND Specialist
DX: E11.36 Type 2 diabetes mellitus with diabetic cataract (principal); H25.9 Unspecified age-related cataract; Z79.4 Long term (current) use of insulin; Z87.891 Personal history of nicotine dependence
CPT/HCPCS: 66984; 82947; V2632

== ENCOUNTER 2023-01-07 05:51 | Outpatient (CLI) | payer MEDICARE, MEDICAID | END 2023-01-07 13:25 | disposition home or self-care (01) | LOC: PREOP 05:51 | PROVIDERS: ATTEND Specialist | DX: Z01.818 Encounter for other preprocedural examination (principal) ==

== ENCOUNTER 2023-01-11 08:23 | Day surgery (SDC) | payer MEDICARE, MEDICAID ==
[~2023-01-11] VITALS: Ht 170.2 cm; Wt 122.7 kg
[2023-01-11 08:25] VITALS: BP 107/92
[2023-01-11] MEDS ORDERED: MOXIFLOXACIN OPHTH SOLN 5 MG/ML 0.3 ML SYRINGE OP ONE (08:30)
[2023-01-11] MEDS ORDERED: TIMOLOL 0.5% (CATARACTS) 0.3 ML BTL OU PRN (08:30)
[2023-01-11] MEDS ORDERED: POVIDONE (BETADINE) OPHTH SOLN 5% 30 ML OP ONE (08:30)
[2023-01-11] MEDS: TETRACAINE 0.5% OPHTH SOLN 4 ML BTL (SINGLE DOSE ONLY) OU PRN ×4 (08:34→08:46)
[2023-01-11] MEDS: TROPICAMIDE 1% OPH SOLN (MYDRIACYL) 15 ML BTL OP SCH ×3 (08:38→08:46)
[2023-01-11] MEDS: PHENYLEPHRINE 10% OPHTH (NEO-SYN) 5 ML BTL OU SCH ×3 (08:38→08:46)
[2023-01-11] MEDS ORDERED: fentaNYL INJ 100 MCG/2 ML AMP ONE (09:21)
--- NOTE | 2023-01-11 09:38 | Ophthalmologist Pre-Op Note ---
Pre-Operative Progress Note H&P Reviewed The H&P was reviewed, patient examined and no changes noted. Date H&P Reviewed: Jan 11, 2023 Time H&P Reviewed: 09:15 Pre-Op Dx Cataract, Left Eye NANETTE MADRID MD Jan 11, 2023 09:38
--- NOTE | 2023-01-11 09:38 | Ophthalmology Operative Report ---
Cataract removal/placement IOL PREOPERATIVE DIAGNOSIS: Cataract Left Eye POSTOPERATIVE DIAGNOSIS: Cataract Left Eye PROCEDURE: Cataract removal and placement of posterior chamber implant, left eye SURGEON: Evangelist [place] ANESTHESIA: Topical with sedation COMPLICATIONS: None ESTIMATED BLOOD LOSS: Minimal DESCRIPTION OF PROCEDURE: After proper informed consent was obtained, the patient, a 67 female, was taken to the Operating Room and the left eye was anesthetized with tetracaine. The left eye was then prepped and draped in the usual manner. A wire lid speculum was placed. A paracentesis was made at the left hand position. Preservative free lidocaine was injected into the anterior chamber followed by viscoelastic. A clear corneal incision was made in the temporal position. A capsulorrhexis was preformed and the central nuclear and cortical material were removed. The posterior capsule was polished and an Ned 26.5 AU00T0 was placed into the capsular bag. The residual viscoelastic was aspirated and balanced saline solution was injected into the anterior chamber. Moxifloxacin was injected into the anterior chamber. The wound was checked and found to be water tight. The patient tolerated the procedure well without complications. EVANGELIST MADRID MD Jan 11, 2023 09:38
[2023-01-11] MEDS ORDERED: acetaZOLAMIDE ER 500 MG CAP (DIAMOX SEQUELS) PO ONE (11:00)
--- NOTE | 2023-01-11 12:04 | Anesthesia-General Post-Op ---
MAC Patient Condition Mental Status/LOC: Same as Preop Cardiovascular: Satisfactory Nausea/Vomiting: Absent Respiratory: Satisfactory Pain: Controlled Complications: Absent Post Op Complications Complications None Follow Up Care/Instructions Patient Instructions None needed. Anesthesiology Discharge Order Discharge Order Patient is doing well, no complaints, stable vital signs, no apparent adverse anesthesia problems. No complications reported per nursing. MARIO CORBETT CRNA Jan 11, 2023 12:04
== END 2023-01-11 09:50 | disposition home or self-care (01) ==
LOC: SDC 08:23
PROVIDERS: ATTEND Specialist
DX: E11.36 Type 2 diabetes mellitus with diabetic cataract (principal); H25.9 Unspecified age-related cataract; Z79.4 Long term (current) use of insulin; E66.01 Morbid (severe) obesity due to excess calories; Z68.41 Body mass index [BMI] 40.0-44.9, adult
CPT/HCPCS: 66984; V2632

== ENCOUNTER 2023-08-28 12:46 | Outpatient (CLI) | payer MEDICARE, MEDICAID | END 2023-08-28 13:10 | LOC: SLEEP 12:46 → RT 13:10 | PROVIDERS: ATTEND Physician Assistant | DX: E78.2 Mixed hyperlipidemia (principal) | CPT/HCPCS: G0399 ==